=== PATIENT | female | born 1980 | race Hispanic/Latino ===

== ENCOUNTER 2021-09-30 11:08 | Outpatient (CLI) | payer OTHER, SELFPAY ==
--- NOTE | ~2021-09-30 | MM_ITS ---
EXAMINATION: MM screening shayla BI w mu HISTORY: Screening mammogram TECHNIQUE: Craniocaudal and mediolateral oblique 3-D tomosynthesis images were obtained and synthetic 2-D images were generated. CAD analysis was submitted and interpreted. COMPARISON: No prior mammogram is available for comparison at this institution. BREAST PARENCHYMAL COMPOSITION: The breasts are extremely dense, which lowers the sensitivity of mamm ography. FINDINGS: There is no evidence of suspicious mass, calcification, or architectural distortion to sugg est malignancy in either breast. There has been no suspicious interval change. IMPRESSION: 1. No mammographic evidence of malignancy. 2. Recommend routine screening mammography in one year. BI-RADS Category 1: Negative Reviewed, dictated and finalized at location A.
== END 2021-09-30 11:09 | disposition home or self-care (01) ==
LOC: ANHIMG 11:13
PROVIDERS: PCP Registered Nurse; Visit Provider Registered Nurse
DX: Z12.31 Encounter for screening mammogram for malignant neoplasm of breast (principal)
CPT/HCPCS: 77063; 77067

== ENCOUNTER 2022-12-24 16:36 | Emergency (ER) | payer OTHER, SELFPAY ==
[2022-12-24 16:51] VITALS: BP 115/74; PULSE 62; RESP 16; TEMP 36.8; O2SAT 100
--- NOTE | 2022-12-24 17:41 | ED.LOWEXIN ---
HPI - Extremity Injury (Lower) General Chief Complaint: Extremity Injury, Lower Stated Complaint: left foot issue Time Seen by Provider: 12/24/22 17:31 Source: patient and RN notes reviewed Mode of arrival: ambulatory Limitations: no limitations History of Present Illness HPI Narrative: Patient presents today complaining of a left 2nd toe injury. Four days ago, she was stepping up on a stair when her left 2nd toe peeled back and was fully avulsed. She was seen by a doctor while on vacation in [place] at that time and was given prescription for 4 days of dicloxacillin and p.r.n. naproxen which she has been taking as prescribed. She presents today requesting a work note because when she works she has to be on her feet all the time in closed toed shoes and it is very painful. Patient is diabetic. Related Data Home Medications Medication Instructions Recorded Confirmed Abx From [place] 12/24/22 Iud 12/24/22 atorvastatin 40 mg tablet mg 12/24/22 metformin 500 mg tablet mg 12/24/22 Allergies Allergy/AdvReac Type Severity Reaction Status Date / Time No Known Allergies Allergy Unverified 12/24/22 17:04 Review of Systems Review of Systems: CONSTITUTIONAL: Denies body aches, fever, chills, or sweats. EYES: Denies visual changes, redness, or discharge. ENT: Denies rhinorrhea, congestion, sore throat, or otalgia. CARDIOVASCULAR: Denies chest pain, palpitations, or edema. RESPIRATORY: Denies cough or dyspnea. GASTROINTESTINAL: Denies abdominal pain, nausea, vomiting, or diarrhea. GENITOURINARY: Denies dysuria or hematuria. SKIN: Denies rash, itching, or wounds. MUSCULOSKELETAL: + toe pain NEUROLOGIC: Denies headache, numbness, tingling, or weakness. PSYCH: Denies depression or anxiety. [facility] Past Medical History Medical History (Updated 12/24/22 @ 17:45 by Kadie Gutierrez, HEAT TREAT TECHNICIAN, ) Diabetes Comments At time of signature, I have reviewed and agree with nursing past medical, surgical, social and family history unless otherwise noted. Please see nursing chart for further information. There is no relevant family history pertinent to the presenting complaint Exam Narrative: GENERAL: Well-appearing, well-nourished, and in no acute distress. HEAD: Normocephalic, atraumatic. EYES: EOMI. No redness or drainage. Conjunctivae normal. ENT: Mucous membranes pink and moist. NECK: Normal AROM. CHEST: No respiratory distress. EXTREMITIES: Left 2nd toe: Toenail is absent. No active drainage or surrounding erythema to suggest infection. No edema noted. Distal sensation intact. Capillary refill normal. Full range of motion SKIN: Warm, dry, no rash. Capillary refill normal. Normal skin turgor. NEURO: No focal deficits. Alert and oriented x3. Gait steady. PSYCH: Normal affect. No signs of depression or anxiety. Course Course Level of Care: Express Care Visit Vital Signs Vital signs: Vital Signs Temperature 98.2 F 12/24/22 16:51 Pulse Rate 62 12/24/22 16:51 Respiratory Rate 16 12/24/22 16:51 Blood Pressure 115/74 12/24/22 16:51 Pulse Oximetry 100 12/24/22 16:51 Oxygen Delivery Room Air 12/24/22 16:51 Temperature 98.2 F 12/24/22 16:51 Pulse Rate 62 12/24/22 16:51 Respiratory Rate 16 12/24/22 16:51 Blood Pressure 115/74 12/24/22 16:51 Pulse Oximetry 100 12/24/22 16:51 Oxygen Delivery Room Air 12/24/22 16:51 Reviewed MDM - Extremity Injury (Lower) MDM Narrative Medical decision making narrative: Area does not seem infected. Patient has finished her antibiotics. Band-Aid applied. Will write patient a work note for a couple of days while the nail bed continues to heal. Differential Diagnosis Differential diagnosis: Likely other (Cellulitis, infected nail bed) Critical Care Time Critical Care Time Critical Care Time: No Discharge Plan Discharge Clinical Impression: Avulsion of toenail of left foot Patient Disposition: Home, Self-Care
== END 2022-12-24 17:47 | disposition home or self-care (01) ==
PROVIDERS: Emergency Provider Nurse Practitioner; PCP Registered Nurse
DX: S91.205D Unspecified open wound of left lesser toe(s) with damage to nail, subsequent encounter (principal); W22.8XXD Striking against or struck by other objects, subsequent encounter; E11.9 Type 2 diabetes mellitus without complications; E78.00 Pure hypercholesterolemia, unspecified
CPT/HCPCS: 99212; G0463

== ENCOUNTER 2023-04-27 08:59 | Outpatient (CLI) | payer OTHER, SELFPAY ==
--- NOTE | ~2023-04-27 | MM_ITS ---
EXAMINATION: MM screening shayla BI w mu HISTORY: Screening mammogram TECHNIQUE: Craniocaudal and mediolateral oblique 3-D tomosynthesis images were obtained and synthetic 2-D images were generated. CAD analysis was submitted and interpreted. COMPARISON: September 30, 2021 bilateral screening mammogram BREAST PARENCHYMAL COMPOSITION: The breasts are extremely dense, which lowers the sensitivity of mamm ography. FINDINGS: Occasional bilateral benign calcifications. There is no evidence of suspicious mass, calcif ication, or architectural distortion to suggest malignancy in either breast. There has been no suspic ious interval change. IMPRESSION: 1. No mammographic evidence of malignancy. 2. Recommend routine screening mammography in one year. Close correlation with physical examination i s imperative as well as routine monthly breast self-examination particularly in the setting of dense breast parenchyma, which limits the sensitivity of mammography. Supplemental ultrasound may be of audrey efit in this setting. BI-RADS Category 2: Benign finding(s). Reviewed, dictated and finalized at location B. ET PRESS ASSISTANT IMPRESSION: 1. No mammographic evidence of malignancy. 2. Recommend routine screening mammography in one year. Close correlation with physical examination is imperative as well as routine monthly breast self-exami nation particularly in the setting of dense breast parenchyma, which limits the sensitivity of mammography. Supplemental ultrasound may be of benefit in this setting. BI-RADS Category 2: Benign finding(s).
== END 2023-04-27 09:00 | disposition home or self-care (01) ==
PROVIDERS: PCP Registered Nurse; Visit Provider Registered Nurse
DX: Z12.31 Encounter for screening mammogram for malignant neoplasm of breast (principal)
CPT/HCPCS: 77063; 77067

== ENCOUNTER 2023-08-23 12:40 | Outpatient (CLI) | payer OTHER, SELFPAY ==
--- NOTE | ~2023-08-23 | XR_ITS ---
EXAMINATION: XR shoulder RT min 2V INDICATION: Right shoulder pain TECHNIQUE: Four views of the right shoulder are submitted. COMPARISON: 07/26/2017 FINDINGS: Normal alignment. No fracture. 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 Soft tissues are unremarkable. IMPRESSION: 1. No acute osseous abnormality. Reviewed, dictated and finalized at location B. GIOUS EDUCATION COORDINATOR
== END 2023-08-23 12:41 | disposition home or self-care (01) ==
LOC: ANHIMG 12:42
PROVIDERS: PCP Registered Nurse; Visit Provider Registered Nurse
DX: M25.511 Pain in right shoulder (principal)
CPT/HCPCS: 73030

== ENCOUNTER 2024-02-14 12:26 | Emergency (ER) | payer OTHER, SELFPAY ==
--- NOTE | ~2024-02-14 | CT_ITS ---
EXAMINATION: CT cervical spine wo con DATE: 02/14/2024 13:24 INDICATION: Neck pain TECHNIQUE: Computed tomography (CT) of the cervical spine was performed without intravenous contrast. Automated exposure control and iterative reconstruction technique were employed. The dose-length pro duct was 279.73 mGy-cm. COMPARISON: None FINDINGS: Straightening of the normal cervical lordosis. Vertebral body heights are normal. No fracture. Mild d isc height loss at C5-C6. Remaining disc heights are normal. Disc bulge at C2-C3 through C6-C7 most p rominent at C5-C6 resulting in multilevel minimal to mild central canal stenosis. Severe facet osteoa rthritis with mild associated neural foraminal stenosis on the left at C2-C3 and on the right at C3-C 4. Moderate bilateral facet osteoarthritis at C7-T1. Mild facet osteoarthritis the remaining cervical levels. There is also minimal to mild multilevel cervical uncovertebral osteoarthritis. Minimal neur al foraminal stenosis a few additional cervical levels. Cervical soft tissues are unremarkable. Mild right and minimal left apical pleural-parenchymal scarring. IMPRESSION: 1. Mild cervical spondylosis. Reviewed, dictated and finalized at location A.
--- NOTE | ~2024-02-14 | XR_ITS ---
XR shoulder RT min 2V 02/14/2024 13:28 Indication: Right shoulder pain Procedure: 4 views right shoulder Comparison: 08/23/2023 Findings: No fracture or traumatic malalignment. There is mild degenerative change of the acromioclav icular joint. No soft tissue abnormality. No foreign bodies. Impression: 1: No acute bone or joint abnormality. Reviewed, dictated and finalized at location B. Impression: 1: No acute bone or joint abnormality.
[2024-02-14 12:27] VITALS: BP 136/89; PULSE 72; RESP 16; TEMP 36.6; O2SAT 99
--- NOTE | 2024-02-14 13:04 | ED.EXTPRO ---
HPI - Extremity Problem General Chief complaint: Extremity Problem,Nontraumatic Stated complaint: Right shoulder and neck pain Time Seen by Provider: 02/14/24 12:46 History of Present Illness HPI Narrative: 43-year-old female presents to the emergency department with her daughter at bedside for right neck and shoulder pain for several months. 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 She has a follow-up with him in April. She presents today because she states the diclofenac is not helping and her pain is persistent and worse through the night. She denies injury trauma, fever. She is reporting intermittent weakness and numbness to the right extremity. She denies clumsiness of her right hand, weakness or numbness to the remainder of her extremities, saddle anesthesia, bowel or bladder incontinence. States she has not had x-rays of this shoulder since August of 2023. She has not had any imaging of her neck. Related Data Home Medications Medication Instructions Recorded Confirmed Abx From [place] 12/24/22 Iud 12/24/22 atorvastatin 40 mg tablet mg 12/24/22 metformin 500 mg tablet mg 12/24/22 Allergies Allergy/AdvReac Type Severity Reaction Status Date / Time No Known Allergies Allergy Unverified 02/14/24 13:02 Review of Systems Review of Systems: All systems reviewed & are unremarkable except as noted in HPI and below PMFSH Past Medical History Medical History Diabetes Exam Narrative: GENERAL: Well-appearing, well-nourished, and in no acute distress. HEAD: Normocephalic, atraumatic. EYES: PERRLA and EOMI. ENT: Nares clear, no rhinorrhea or epistaxis. Mucous membranes moist. NECK: No significant midline cervical spinous tenderness, step-offs or deformities. Tenderness to the right cervical paraspinous muscles extending into the trapezius. CHEST: Clear to auscultation. No respiratory distress. HEART: Regular rate and rhythm. No murmur heard. Normal peripheral pulses. EXTREMITIES: RUE: Tenderness along the trapezius, point tenderness to the right acromioclavicular joint on palpation. Mild tenderness to the proximal aspect of the right humerus. No overlying skin changes or deformities. Full active range of motion, pain worse with abduction and anterior flexion. Strength 5/5 throughout. Sensation intact throughout. Radial, median and ulnar nerves are intact. Radial pulse 2 +. Negative empty can sign. Negative lift-off sign. Positive Neer sign. SKIN: Warm, dry, no rash. NEURO: No focal deficits. Alert and oriented x3 Course Vital Signs Vital signs: Vital Signs Temperature 97.9 F 02/14/24 12:27 Pulse Rate 72 02/14/24 12:27 Respiratory Rate 16 02/14/24 12:27 Blood Pressure 136/89 02/14/24 12:27 Pulse Oximetry 99 02/14/24 12:27 Oxygen Delivery Room Air 02/14/24 12:27 Temperature 97.9 F 02/14/24 12:27 Pulse Rate 72 02/14/24 12:27 Respiratory Rate 16 02/14/24 12:27 Blood Pressure 136/89 02/14/24 12:27 Pulse Oximetry 99 02/14/24 12:27 Oxygen Delivery Room Air 02/14/24 12:27 MDM - Extremity (Nontraumatic) MDM Narrative Medical decision making narrative: 43-year-old female presents to the emergency department for right neck pain and shoulder pain for several months. Vitals are stable. Exam is significant for tenderness to the right cervical paraspinous muscles, trapezius, point tenderness to the right AC and proximal humerus. She has full active and passive range of motion. Pain worse with anterior flexion and abduction. Positive Neer test. CT cervical spine shows mild cervical spondylosis. X-ray of the shoulder shows degenerative changes at the AC joint, otherwise no acute findings. negative. Patient updated on workup and exam. Suspect shoulder impingement is source of her symptoms. Sh
[2024-02-14] MEDS: CYCLOBENZAPRINE HCL 10 MG TABLET PO (13:11)
[2024-02-14] MEDS: NAPROXEN 500 MG TABLET PO (13:11)
[2024-02-14] MEDS: ACETAMINOPHEN 500 MG TABLET 1000 MG PO (13:11)
[2024-02-14] MEDS: LIDOCAINE 5% PATCH 1 PATCH TRANSDERM (13:12)
[2024-02-14 13:16] LABS: BEDSIDEPREGUCG Negative
[2024-02-14 15:29] VITALS: BP 133/90; PULSE 61; RESP 15; TEMP 36.1; O2SAT 98
== END 2024-02-14 15:34 | disposition home or self-care (01) ==
PROVIDERS: Emergency Provider Physician Assistant; PCP Registered Nurse
DX: M25.811 Other specified joint disorders, right shoulder (principal); M25.511 Pain in right shoulder; G89.29 Other chronic pain; E11.9 Type 2 diabetes mellitus without complications
CPT/HCPCS: 72125; 73030; 81025; 99284; A4565; A9270

== ENCOUNTER 2024-05-09 09:26 | Outpatient (CLI) | payer OTHER, SELFPAY ==
--- NOTE | ~2024-05-09 | XR_ITS ---
XR heel RT min 2V DATE: 05/09/2024 09:45 INDICATION: Right lateral heel pain for 4 weeks. No injury. TECHNIQUE: Axial and lateral views of right calcaneus COMPARISON: None FINDINGS: No fracture or dislocation or bone destruction. Very slight posterior calcaneal enthesopathy. IMPRESSION: Very slight posterior calcaneal enthesopathy Reviewed, dictated and finalized at location A. OL OF NURSING DIRECTOR
== END 2024-05-09 09:27 | disposition home or self-care (01) ==
PROVIDERS: PCP Registered Nurse; Visit Provider Registered Nurse
DX: M77.31 Calcaneal spur, right foot (principal)
CPT/HCPCS: 73650

== ENCOUNTER 2024-10-13 07:23 | Outpatient (CLI) | payer OTHER, SELFPAY ==
--- NOTE | ~2024-10-13 | MM_ITS ---
EXAMINATION: MM screening shayla BI w mu HISTORY: Screening mammogram TECHNIQUE: Craniocaudal and mediolateral oblique 3-D tomosynthesis images were obtained and synthetic 2-D images were generated. CAD analysis was submitted and interpreted. COMPARISON: 04/27/2023, 09/30/2021 BREAST PARENCHYMAL COMPOSITION:Dense: The breasts are extremely dense, which lowers the sensitivity o f mammography. FINDINGS: No suspicious mass, calcification, or architectural distortion are identified in either haider ast to suggest malignancy. There has been no suspicious interval change. IMPRESSION: No mammographic evidence of malignancy. Recommend routine screening mammography in one year. BI-RADS Category 1: Negative Reviewed, dictated and finalized at location M.
--- OUTSIDE RECORDS SUMMARY | 2024-10-13 07:27 | XMS_ITS ---
past 12 months-neg ative Nephropath y Screening: done Pneumovax 23: UTD Eye Exam: completed in the last 12 months- positive Patient Education: healthy diet: yes no exercise: yes no weight loss: yes no foot care: yes no complicati ons of uncontroll ed diabetes: yes no medication compliance : yes no Next Visit: 3 months(s) Allergic rhinitis 780161 04 J30.9 May use Benadryl prn and nasal spray prn Mixed hyperlipidemia 267 172098 E78.2 04/28/2019 Total cho 153 Trig 190 elevated HDL 40 low LDL 87 normal Patient is unable to take statin 02/11/2020 cho 416.3 trig 170.2 HDL 28.3 LDL 81 Patient re- started on Atorvastat in 40mg once daily per PUBLIC POLICY COORDINATOR T. Mond on 05/18/2020 06/21/2020 cho 108.5 trig 188 HDL 37.6 LDL 22cho 97.6Trig 130HDL 38.3LDL 39 09/19/2022 cho 156trig 358HDL 38.9LDL 61.9 12/31/2022 cho 132trig 301HDL 39LDL 47 continue atorvastat in 40mg dailyvasce pa not coveredAvo id all breads, potatoes, cereal, pasta, rice, margarine, refined sugars, milk yogurt, ice cream, juices, soda (including diet), beer, and man-made or manufactur ed desserts. Enjoy steak, fish, chicken (no skin), pork, butter, vegetables , beans, nuts, whole eggs, cheese (low fat or skim), cream in your coffee. 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 Pain of ri ght shoulder joint [id number] 1877595 M25.511 Refuses PT for right nowShe is exercising at home2023 XRAY Shoulder shows OA of acromiocla vicular joint [id number] Dai Fernandez [facility] [address] [place] [address] 01/01/2024 15:30:13 01/07/2024 20:19:37 Type 2 diabetes mellitus 42009279 E11.9 diabetes mellitus Chronic worse A1c 8.2, Goal < 8.0Statin: yes SHYANNE/ARB: yes Foot Exam: completed in the past 12 months-neg ative Nephropath y Screening: done Pneumovax 23: UTD Eye Exam: completed in the last 12 months- negative Patient Education: healthy diet: yes no exercise: yes no weight loss: yes no foot care: yes no complicati ons of uncontroll ed diabetes: yes no medication compliance : yes no Next Visit: 3 months(s) Hypertriglyceridemia 302 117683 E78.2 12/31/2022 cho 132trig 301HDL 39LDL 47 Mixed hyperlipidemia 267 866806 E78.2 04/28/2019 Total cho 153 Trig 190 elevated HDL 40 low LDL 87 normal Patient is unable to take statin 02/11/2020 cho 416.3 trig 170.2 HDL 28.3 LDL 81 Patient re- started on Atorvastat in 40mg once daily per PUBLIC POLICY COORDINATOR Coco Warner on 05/18/2020 06/21/2020 cho 108.5 trig 188 HDL 37.6 LDL 22cho 97.6Trig 130HDL 38.3LDL 39 09/19/2022 cho 156trig 358HDL 38.9LDL 61.9 12/31/2022 cho 132trig 301HDL 39LDL 47 continue atorvastat in 40mg dailyvasce pa not coveredAvo id all breads, potatoes, cereal, pasta, rice, margarine, refined sugars, milk yogurt, ice cream, juices, soda (including diet), beer, and man-made or manufactur ed desserts. Enjoy steak, fish, chicken (no skin), pork, butter, vegetables , beans, nuts, whole eggs, cheese (low fat or skim), cream in your coffee. 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 [id number] NORRIS MANCIA-[facility] [address] [place] [address] 01/13/2024 10:24:17 01/14/2024 18:38:26 Mixed hyperlipidemia 387373927 E78.2 04/28/2019 Total cho 153 Trig 190 elevated HDL 40 low LDL 87 normal Patient is unable to take statin 02/11/2020 cho 416.3 trig 170.2 HDL 28.3 LDL 81 Patient re- started on Atorvastat in 40mg once daily per PUBLIC POLICY COORDINATOR Coco Warner on 05/18/2020 06/21/2020 cho 108.5 trig 188 HDL 37.6 LDL 22cho 97.6Trig 130HDL 38.3LDL 39 09/19/2022 cho 156trig 358HDL 38.9LDL 61.9 12/31/2022 cho 132trig 301HDL 39LDL 47 continue atorvastat in 40mg dailyvasce pa not coveredAvo id all breads, potatoes, cereal, pasta, rice, margarine, refined sugars, milk yogurt, ice cream, juices, soda (including diet), beer, and man-made or manufactur ed desserts. Enjoy steak, fish, chicken (no skin), pork, butter, vegetables , beans, nuts, whole eggs, cheese (low fat or skim), cream in your coffee. [id number] Dai Fernandez, [employer] [facility] [address] [place] [address] 04/13/2024 15:34:57 04/17/2024 14:57:01 Type 2 diabetes mellitus 41287707 E11.9 diabetes mellitus Chronic worse A1c 8.5, Goal < 8.0Statin: yes SHYANNE/ARB: yes Foot Exam: completed in the past 12 months-neg ative Nephropath y Screening: done Pneumovax 23: UTD Eye Exam: completed in the last 12 months- negative Patient Education: yes healthy diet: no-just returned from vacation exercise: yes weight loss:yes foot care: yes complicati ons of uncontroll ed diabetes: no medication compliance : yes Next Visit: 3 months(s) Hypertriglyceridemia 302 552836 E78.2 12/31/2022 cho 132trig 301HDL 39LDL 47 01/13/2024 cho 163trig 360HDL 34LDL 114 Mixed hyperlipidemia 267 713794 E78.2 04/28/2019 Total cho 153 Trig 190 elevated HDL 40 low LDL 87 normal Patient is unable to take statin 02/11/2020 cho 416.3 trig 170.2 HDL 28.3 LDL 81 Patient re- started on Atorvastat in 40mg once daily per PUBLIC POLICY COORDINATOR T. Mond on 05/18/2020 06/21/2020 cho 108.5 trig 188 HDL 37.6 LDL 22cho 97.6Trig 130HDL 38.3LDL 39 09/19/2022 cho 156trig 358HDL 38.9LDL 61.9 12/31/2022 cho 132trig 301HDL 39LDL 47 01/13/2024 cho 163trig 360HDL 34LDL 114 continue atorvastat in 40mg dailyvasce pa not coveredAvo id all breads, potatoes, cereal, pasta, rice, margarine, refined sugars, milk yogurt, ice cream, juices, soda (including diet), beer, and man-made or manufactur ed desserts. Enjoy steak, fish, chicken (no skin), pork, butter, vegetables , beans, nuts, whole eggs, cheese (low fat or skim), cream in your coffee. Allergic rhinitis 542621 04 J30.9 May use Benadryl prn and nasal spray prn Overweight 690624781 E66 .3 BMI 26.4Ht 5' 6.5 Healthy weight range 120-169 Migraine 45886608 G43.90 9 Pain of ri ght shoulder joint 5831639848 3350446 M25.511 Refuses PT for right nowShe is exercising at home2023 XRAY Shoulder shows OA of acromiocla vicular jointHas appointmen t with ortho 04/23/2024 may need MRI/steroi d injection Osteoarthritis 583667344 M19.90 Reminded of BB warning with Ibuprofens witch from tylenol arthritis to occasional ibuprofen Asteatosis cutis 8973609 0 L85.3 Tobacco user 849530160 Z 72.0 5 cigs per week for 7 yearscouns eled to quit Verruca vulgaris 3238830 3 B07.8 Administra tion of influenza vaccine 18865981 Z23 Pain in right heel 97472 32330 637764 M79.579 [id number] Dai Fernandez [facility] [address], [place] [address] 07/17/2024 16:08:46 07/20/2024 15:50:24 Body mass index 25-29 - overweight 346781227 Z68.25 BMI 26.1Ht 5' 6.5 Healthy weight range 120-155 Type 2 lorraine betes mellitus 39778404 E11.9 diabetes mellitus Chronic worse-has been eating at later times-forg ets to take night dosage-not following dietPatien t wants to wait on addition of another medication -will try LSM A1c 8.6, Goal < 8.0Statin: yes SHYANNE/ARB: yes Foot Exam: completed in the past 12 months-neg ative Nephropath y Screening: done Pneumovax 23: UTD Eye Exam: completed in the last 12 months- negative Patient Education: yes healthy diet: no-just returned from vacation exercise: yes weight loss:yes foot care: yes complicati ons of uncontroll ed diabetes: no medication compliance : yes Next Visit: 3 months(s) Mixed hyperlipidemia 267 929083 E78.2 04/28/2019 Total cho 153 Trig 190 elevated HDL 40 low LDL 87 normal Patient is unable to take statin 02/11/2020 cho 416.3 trig 170.2 HDL 28.3 LDL 81 Patient re- started on Atorvastat in 40mg once daily per PUBLIC POLICY COORDINATOR TNellie Hawkinsd on 05/18/2020 06/21/2020 cho 108.5 trig 188 HDL 37.6 LDL 22cho 97.6Trig 130HDL 38.3LDL 39 09/19/2022 cho 156trig 358HDL 38.9LDL 61.9 12/31/2022 cho 132trig 301HDL 39LDL 47 01/13/2024 cho 163trig 360HDL 34LDL 114 continue atorvastat in 40mg dailyvasce pa not coveredAvo id all breads, potatoes, cereal, pasta, rice, margarine, refined sugars, milk yogurt, ice cream, juices, soda (including diet), beer, and man-made or manufactur ed desserts. Enjoy steak, fish, chicken (no skin), pork, butter, vegetables , beans, nuts, whole eggs, cheese (low fat or skim), cream in your coffee. Hypertriglyceridemia 302 821948 E78.2 12/31/2022 cho 132trig 301HDL 39LDL 47 01/13/2024 cho 163trig 360HDL 34LDL 114 Allergic rhinitis 604356 04 J30.9 May use Benadryl prn and nasal spray prn Overweight 259261617 E66 .3 BMI 26.1Ht 5' 6.5 Healthy weight range 120-169 Migraine 56771829 G43.90 9 Pain of ri ght shoulder joint 8255298423 0086541 M25.511 Refuses PT for right nowShe is exercising at home2023 XRAY Shoulder shows OA of acromiocla vicular jointHad appointmen t with ortho 04/23/2024 may need MRI/steroi d injectionw as told to do rehab exercises- she is to follow up Osteoarthritis 622729602 M19.90 Reminded of BB warning with Ibuprofens witch from tylenol arthritis to occasional ibuprofen Asteatosis cutis 1075216 0 L85.3 Tobacco user 060428657 Z 72.0 5 cigs per week for 7 yearscouns eled to quit Verruca vulgaris 2323800 3 B07.8 fell off but has returnedsh e will use meds given at last visit Pain in right heel 56728 09356 550962 M79.671 05/09/2024 Heel xray shows calcaneal enthesopat hy may use orthotics, NSAIDS Depression screening 171 777773 Z13.31 PHQ2-9 negative Health Concerns Section Related Observation LastModified by Organization Detai ls LastModified Time None Recorded Concern Status LastModified by Organization Details LastModified Time None Recorded Advance Directives Directive N: Payers Encounter Date Sequence Insurance Name Policy Number Policy Tubbs Covered Member ID Tubbs Member ID Guarantor Name 10/15/2023 1 [facility] ON OR AFTER 12/15/20 (MEDICAID REPLACEMENT - HMO) Jennifer Sosa [id number] Jennifer Sosa 01/01/2024 1 [facility] ON OR AFTER 12/15/20 (MEDICAID REPLACEMENT - HMO) Jennifer Sosa [id number] Jennifer Sosa 01/13/2024 1 [facility] ON OR AFTER 12/15/20 (MEDICAID REPLACEMENT - HMO) Jennifer oSsa [id number] Jennifer Sosa 04/13/2024 1 [facility] ON OR AFTER 12/15/20 (MEDICAID REPLACEMENT - HMO) Jennifer Sosa [id number] Jennifer Sosa 07/17/2024 1 [facility] ON OR AFTER 12/15/20 (MEDICAID REPLACEMENT - HMO) Jennifer Sosa [id number] Jennifer Sosa Notes Date Note Type Note Provider Name and Address Organization Details Recorded Time 10/15/2023 text/html Back PainReporte d bypatient.Location:pain is not radiating Severity:worsening;pain level 5/10 Duration:intermittent Onset/Timing:recurrent episode Alleviating Factors:rest; relieved by changing position; massage Aggravating Factors:movement/positi oning;twisting;flexing back;extending back Associated Symptoms:no fever; no weak limbs; no numbness of the legs/feet; no tingling; no incontinence; no shortness of breathDiabetes F/UReported bypatient.Review finger sticks:fastin; post breakfast: 160; post dinner: 120s Labs:last A1C result: 8.0 Context:normal range of home blood sugars (in the low 100s); checking feet regularly; taking aspirin daily; no side effects from medications;not seeing eye doctor yearly;missing doses of medication; forgets evening dose Associated Symptoms:no weight gain; no weight loss; no dizziness; no sweats; no headaches; no confusion; no increased thirst; no increased appetite; no increased urination; no blurred vision; no numbness of feet; no calluses on feetHyperlipidemiaRepor sarmad bypatient.Type of hyperlipidemia:combined ;hypercholesterolemia;h ypertriglyceridemia Duration:chronic Control:not at goal; Pt had been and which she reports she is no longer Compliance:compliant; compliant with diet;does not exercise Complications:no coronary artery disease; no peripheral artery disease;cardiovascular disease Risk Factors:diabetes;hypert ension;obesity;high lipoprotein(a) level 42y/o HF presents for DM2 refills. She feels fine denies any polys. She forgets to take her evening metformin dose. Since HA1c has been a little elevated will try harder at taking meds/diet. If no improvement will be adding another agent to control BS.She saw manager sterile processing. She had surgery for 1 of her bunions. She is doing well.She c/o R shoulder pain radiating up to neck. She is right handed and is aware she uses R arm frequently while at work. She denies any cramping. She had shoulder xray which shows OA. She doesnt want to go to PT right now. She agrees to consult with ortho for other options.She c/o continued itchiness on L shoulder blade area for years. No obvious rash just dry skin. Lac-hydrin helping. OSMIN Hawk Attn: Accounting,[address] [place], [address], [facility] 10/15/2023 18:04:22 01/01/2024 text/html 43y/o HF present s for DM2 refills. She feels fine denies any polys. She forgets to take her evening metformin dose. Since HA1c has been a little elevated will try harder at taking meds/diet. If no improvement will be adding another agent to control BS.She saw manager sterile processing. She had surgery for 1 of her bunions. She is doing well.She c/o R shoulder pain radiating up to neck. She is right handed and is aware she uses R arm frequently while at work. She denies any cramping. She had shoulder xray which shows OA. She doesnt want to go to PT right now. She agrees to consult with ortho for other options. Has appointment in a couple of months.She c/o continued itchiness on L shoulder blade area for years. No obvious rash just dry skin. Lac-hydrin helping. OSMIN Hawk Attn: Accounting[address] [place], [address], [facility] 01/03/2024 15:33:40 01/01/2024 text/html Back PainReporte d bypatient.Location:pain is not radiating Severity:worsening;pain level 5/10 Duration:intermittent Onset/Timing:recurrent episode Alleviating Factors:rest; relieved by changing position; massage Aggravating Factors:movement/positi oning;twisting;flexing back;extending back Associated Symptoms:no fever; no weak limbs; no numbness of the legs/feet; no tingling; no incontinence; no shortness of breathDiabetes F/UReported bypatient.Review finger sticks:fastin; post breakfast: 160; post dinner: 120s Labs:last A1C result: 8.0 Context:normal range of home blood sugars (in the low 100s); checking feet regularly; taking aspirin daily; no side effects from medications;not seeing eye doctor yearly;missing doses of medication; forgets evening dose Associated Symptoms:no weight gain; no weight loss; no dizziness; no sweats; no headaches; no confusion; no increased thirst; no increased appetite; no increased urination; no blurred vision; no numbness of feet; no calluses on feetHyperlipidemiaRepor sarmad bypatient.Type of hyperlipidemia:combined ;hypercholesterolemia;h ypertriglyceridemia Duration:chronic Control:not at goal; Pt had been and which she reports she is no longer Compliance:compliant; compliant with diet;does not exercise Complications:no coronary artery disease; no peripheral artery disease;cardiovascular disease Risk Factors:diabetes;hypert ension;obesity;high lipoprotein(a) level OSMIN Hawk Attn: Accounting,[address] [place], [address], [facility] 01/03/2024 15:33:40 04/13/2024 text/html Back PainReporte d bypatient.Location:pain is not radiating Severity:worsening;pain level 5/10 Duration:intermittent Onset/Timing:recurrent episode Alleviating Factors:rest; relieved by changing position; massage Aggravating Factors:movement/positi oning;twisting;flexing back;extending back Associated Symptoms:no fever; no weak limbs; no numbness of the legs/feet; no tingling; no incontinence; no shortness of breathDiabetes F/UReported bypatient.Review finger sticks:fastin; post breakfast: 160; post dinner: 120s Labs:last A1C result: 8.5 Context:normal range of home blood sugars (in the low 100s); checking feet regularly; taking aspirin daily; no side effects from medications;not seeing eye doctor yearly;missing doses of medication; forgets evening dose Associated Symptoms:no weight gain; no weight loss; no dizziness; no sweats; no headaches; no confusion; no increased thirst; no increased appetite; no increased urination; no blurred vision; no numbness of feet; no calluses on feetHyperlipidemiaRepor sarmad bypatient.Type of hyperlipidemia:combined ;hypercholesterolemia;h ypertriglyceridemia Duration:chronic Control:not at goal; Pt had been and which she reports she is no longer Compliance:compliant; compliant with diet;does not exercise Complications:no coronary artery disease; no peripheral artery disease;cardiovascular disease Risk Factors:diabetes;hypert ension;obesity;high lipoprotein(a) level 43y/o HF presents for DM2 refills. She feels fine denies any polys. She forgets to take her evening metformin dose. Since HA1c has been a little elevated will try harder at taking meds/diet. If no improvement will be adding another agent to control BS.She saw manager sterile processing. She had surgery for 1 of her bunions. She is doing well.She c/o R shoulder pain radiating up to neck. She is right handed and is aware she uses R arm frequently while at work. She denies any cramping. She had shoulder xray which shows OA. She doesnt want to go to PT right now. She agrees to consult with ortho for other options. Has appointment in a couple of months. She had severe pain of shoulder so she presented to ER on 02/14/[address] of neck and shoulder.She c/o continued itchiness on L shoulder blade area for years. No obvious rash just dry skin. Lac-hydrin helping.c/o R heel pain for about two months changes her tennis shoes using inserts still has pain.She wants influenza vaccine. Has no contraindications.She just returned from vacation. Dai Fernandez, [employer] Attn: Accounting,[address] [facility], [place], [address], [place] [facility] 04/16/2024 16:21:10 07/17/2024 text/html Back PainReporte d bypatient.Location:pain is not radiating Severity:worsening;pain level 5/10 Duration:intermittent Onset/Timing:recurrent episode Alleviating Factors:rest; relieved by changing position; massage Aggravating Factors:movement/positi oning;twisting;flexing back;extending back Associated Symptoms:no fever; no weak limbs; no numbness of the legs/feet; no tingling; no incontinence; no shortness of breathDiabetes F/UReported bypatient.Review finger sticks:fastin; post breakfast: 160; post dinner: 120s Labs:last A1C result: 8.5 Context:normal range of home blood sugars (in the low 100s); checking feet regularly; taking aspirin daily; no side effects from medications;not seeing eye doctor yearly;missing doses of medication; forgets evening dose Associated Symptoms:no weight gain; no weight loss; no dizziness; no sweats; no headaches; no confusion; no increased thirst; no increased appetite; no increased urination; no blurred vision; no numbness of feet; no calluses on feetHyperlipidemiaRepor sarmad bypatient.Type of hyperlipidemia:combined ;hypercholesterolemia;h ypertriglyceridemia Duration:chronic Control:not at goal; Pt had been and which she reports she is no longer Compliance:compliant; compliant with diet;does not exercise Complications:no coronary artery disease; no peripheral artery disease;cardiovascular disease Risk Factors:diabetes;hypert ension;obesity;high lipoprotein(a) level 43y/o HF presents for DM2 refills. She feels fine denies any polys. She forgets to take her evening metformin dose. Since HA1c has been a little elevated will try harder at taking meds/diet. If no improvement will be adding another agent to control BS.She saw manager sterile processing. She had surgery for 1 of her bunions. She is doing well.She c/o R shoulder pain radiating up to neck. She is right handed and is aware she uses R arm frequently while at work. She denies any cramping. She had shoulder xray which shows OA. She doesnt want to go to PT right now. She agrees to consult with ortho for other options. Has appointment in a couple of months. She had severe pain of shoulder so she presented to ER on last year and had CT of neck and shoulder. Reports PUBLIC POLICY COORDINATOR at [facility] ortho recommends extensive rehab rahter than steroid shots for now.She c/o continued itchiness on L shoulder blade area for years. No obvious rash just dry skin. Lac-hydrin helping.c/o R heel pain for about two months changes her tennis shoes using inserts still has pain. Xray shows heel enthesopathy. She will continue conservative treatment.She just returned from vacation. OSMIN Hawk Attn: Accounting,[address] [place], [address], [facility] 07/17/2024 17:34:55 OBGyn Episode Ob Episode Information Episode Created Date Number of Fetuses Patient Bloodtype Patient rh Status Prepregnancy Weight lbs Domestic Partner Domestic Partner Phone Father Name Sexologist Status 08/26/19 19 1 CLOSED Fetus Data First Name Last Name Admitted to NICU Weight (g) Sex Living Outcome Pediatric Complications Fetus ID Race Codes Race Delivery Type , Spontane ous [id number] Taurus Calculation Initial Taurus Date Initial Exam Date Initial Exam Provider Initial Ultrasound Date Last Menstrual Period Date Ultra Sound Weeks Gestation 0 Eighteen To Twenty Week Taurus Update Ultra Sound Date Fundal Height At Umbil Quickening Date Ultra Sound Latest Weeks Gestation Final Taurus Confirmed By Final Taurus Confirmed Date Final Taurus Date Ultra Sound Latest Days Gestation 0 0 Menstrual History Last Menstrual Date Menses Monthly On Bcp Conception Prior Menses Frequency Hcg Plus Date Menarche Onset Age Delivery Information Delivery Date Delivery Type Labor Anesthesia Weeks Gestation Incision Type Labor Labor Length Hrs Delivered By Post Complications Tubal Sterilization Discharge Date Comments 8 seen in [facility] ER Discharge Information Feeding Method Contraceptive Method Maternal HG B and HCT Levels Ob Episode Information Episode Created Date Number of Fetuses Patient Bloodtype Patient rh Status Prepregnancy Weight lbs Domestic Partner Domestic Partner Phone Father Name Sexologist Status 08/26/19 19 1 CLOSED Fetus Data First Name Last Name Admitted to NICU Weight (g) Sex Living Outcome Pediatric Complications Fetus ID Race Codes Race Delivery Type , Spontane ous [id number] Taurus Calculation Initial Taurus Date Initial Exam Date Initial Exam Provider Initial Ultrasound Date Last Menstrual Period Date Ultra Sound Weeks Gestation 0 Eighteen To Twenty Week Taurus Update Ultra Sound Date Fundal Height At Umbil Quickening Date Ultra Sound Latest Weeks Gestation Final Taurus Confirmed By Final Taurus Confirmed Date Final Taurus Date Ultra Sound Latest Days Gestation 0 0 Menstrual History Last Menstrual Date Menses Monthly On Bcp Conception Prior Menses Frequency Hcg Plus Date Menarche Onset Age Delivery Information Delivery Date Delivery Type Labor Anesthesia Weeks Gestation Incision Type Labor Labor Length Hrs Delivered By Post Complications Tubal Sterilization Discharge Date Comments 9 5 seen in [facility] ER Discharge Information Feeding Method Contraceptive Method Maternal HG B and HCT Levels Ob Episode Information Episode Created Date Number of Fetuses Patient Bloodtype Patient rh Status Prepregnancy Weight lbs Domestic Partner Domestic Partner Phone Father Name Sexologist Status 02/10/20 20 1 CLOSED Fetus Data First Name Last Name Admitted to NICU Weight (g) Sex Living Outcome Pediatric Complications Fetus ID Race Codes Race Delivery Type F [id number] Vaginal Taurus Calculation Initial Taurus Date Initial Exam Date Initial Exam Provider Initial Ultrasound Date Last Menstrual Period Date Ultra Sound Weeks Gestation 0 Eighteen To Twenty Week Taurus Update Ultra Sound Date Fundal Height At Umbil Quickening Date Ultra Sound Latest Weeks Gestation Final Taurus Confirmed By Final Taurus Confirmed Date Final Taurus Date Ultra Sound Latest Days Gestation 0 0 Menstrual History Last Menstrual Date Menses Monthly On Bcp Conception Prior Menses Frequency Hcg Plus Date Menarche Onset Age Delivery Information Delivery Date Delivery Type Labor Anesthesia Weeks Gestation Incision Type Labor Labor Length Hrs Delivered By Post Complications Tubal Sterilization Discharge Date Comments 0 Discharge Information Feeding Method Contraceptive Method Maternal HG B and HCT Levels Ob Episode Information Episode Created Date Number of Fetuses Patient Bloodtype Patient rh Status Prepregnancy Weight lbs Domestic Partner Domestic Partner Phone Father Name Sexologist Status 09/04/19 15 1 CLOSED Fetus Data First Name Last Name Admitted to NICU Weight (g) Sex Living Outcome Pediatric Complications Fetus ID Race Codes Race Delivery Type 4309.12 4 M Full Term [id number] Vaginal Taurus Calculation Initial Taurus Date Initial Exam Date Initial Exam Provider Initial Ultrasound Date Last Menstrual Period Date Ultra Sound Weeks Gestation 0 Eighteen To Twenty Week Taurus Update Ultra Sound Date Fundal Height At Umbil Quickening Date Ultra Sound Latest Weeks Gestation Final Taurus Confirmed By Final Taurus Confirmed Date Final Taurus Date Ultra Sound Latest Days Gestation 0 0 Menstrual History Last Menstrual Date Menses Monthly On Bcp Conception Prior Menses Frequency Hcg Plus Date Menarche Onset Age Delivery Information Delivery Date Delivery Type Labor Anesthesia Weeks Gestation Incision Type Labor Labor Length Hrs Delivered By Post Complications Tubal Sterilization Discharge Date Comments 3 40 Discharge Information Feeding Method Contraceptive Method Maternal HG B and HCT Levels Ob Episode Information Episode Created Date Number of Fetuses Patient Bloodtype Patient rh Status Prepregnancy Weight lbs Domestic Partner Domestic Partner Phone Father Name Sexologist Status 09/04/19 15 1 CLOSED Fetus Data First Name Last Name Admitted to NICU Weight (g) Sex Living Outcome Pediatric Complications Fetus ID Race Codes Race Delivery Type 3088.96 152 F Full Term [id number] Vaginal Taurus Calculation Initial Taurus Date Initial Exam Date Initial Exam Provider Initial Ultrasound Date Last Menstrual Period Date Ultra Sound Weeks Gestation 0 Eighteen To Twenty Week Taurus Update Ultra Sound Date Fundal Height At Umbil Quickening Date Ultra Sound Latest Weeks Gestation Final Taurus Confirmed By Final Taurus Confirmed Date Final Taurus Date Ultra Sound Latest Days Gestation 0 0 Menstrual History Last Menstrual Date Menses Monthly On Bcp Conception Prior Menses Frequency Hcg Plus Date Menarche Onset Age Delivery Information Delivery Date Delivery Type Labor Anesthesia Weeks Gestation Incision Type Labor Labor Length Hrs Delivered By Post Complications Tubal Sterilization Discharge Date Comments 6 38 [place] Discharge Information Feeding Method Contraceptive Method Maternal HG B and HCT Levels Data Portability Created on: October 13, 2024 Jennifer Sosa .[id number] : 1980 Sex: Female Author Organization [facility] Address [address] [place] [address] Care Team Providers Care Licensed Land Surveyor Name Role Phone DAI FERNANDEZ Primary Care Provider LILLI CAMPOS Button Broacher Assessment No assessment recorded. Plan of Treatment Reminders Order Date Submit Date Provider Last Modified By Organization Details Last Modified Time Details Appointments ANY 15 2024 10:00A M EDVIN EDWARDS PA-C Not available Not available Not available Lab HbA1c (hemoglob in A1c), blood 2024 025 [email or web address] In-Office Order, Internal Use Only DO Not Attach Compendium DO Not Attach Compendium, Do Not Delete/merge, [id number] 07/17/2024 17:11:06 glucose, fingersti ck, blood 2024 025 yarauz In-Office Order, Internal Use Only DO Not Attach Compendium DO Not Attach Compendium, Do Not Delete/merge, [id number] 07/17/2024 17:11:05 HbA1c (hemoglob in A1c), blood 2023 024 yarauz In-Office Order, Internal Use Only DO Not Attach Compendium DO Not Attach Compendium, Do Not Delete/merge, [id number] 04/13/2024 17:26:51 glucose, fingersti ck, blood 2023 024 yarauz In-Office Order, Internal Use Only DO Not Attach Compendium DO Not Attach Compendium, Do Not Delete/merge, [id number] 04/13/2024 17:26:52 lipid panel, serum 2023 024 [facility], [address] [facility], [address], [place], [address], 01/14/2024 11:17:08 CMP, serum or plasma 2023 024 [facility], [address] [facility] [address], [address], [place], [address], 01/14/2024 11:17:08 TSH, ultra-sen sitive, serum 2023 024 [facility], [address], [address], [place], [address], 01/14/2024 10:15:00 urinalysi s, complete 2023 024 [facility], [address] [facility] [address], [place], [address], 01/14/2024 11:17:10 CBC 2023 024 [facility], [address] [facility], [address], [place], [address], 01/14/2024 17:10:08 albumin/c reatinine , mass ratio, urine 2023 024 [facility], [address] [facility] [address], [address], [place], [address], 01/14/2024 10:14:59 lipid panel, serum 2023 024 [email or web address] [facility], [address] [facility] [address], [address], [place], [address], 01/22/2024 13:27:00 CMP, serum or plasma 2023 024 lfullerrn [facility], [address] [facility] [address], [place], [address], 01/22/2024 13:27:00 TSH, ultra-sen sitive, serum 2023 024 lfullerrn [facility], [address] [facility] [address], [address], [place], [address], 01/22/2024 13:27:00 urinalysi s, complete 2023 024 [email or web address] [facility], [address] [facility], [address], [place], [address], 01/22/2024 13:27:00 CBC 2023 024 [email or web address] [facility], [address] [facility], [address], [place], [address], 01/22/2024 13:27:00 HbA1c (hemoglob in A1c), blood 2023 024 yarauz In-Office Order, Internal Use Only DO Not Attach Compendium DO Not Attach Compendium, Do Not Delete/merge, [id number] 01/01/2024 16:23:51 glucose, fingersti ck, blood 2023 024 yarauz In-Office Order, Internal Use Only DO Not Attach Compendium DO Not Attach Compendium, Do Not Delete/merge, [id number] 01/01/2024 16:23:52 albumin/c reatinine , mass ratio, urine 2023 024 [facility], [address] [facility], [address], [place], [address], 01/22/2024 13:27:00 HbA1c (hemoglob in A1c), blood 2023 024 yarauz In-Office Order, Internal Use Only DO Not Attach Compendium DO Not Attach Compendium, Do Not Delete/merge, [id number] 10/15/2023 17:05:45 glucose, fingersti ck, blood 2023 024 yarauz In-Office Order, Internal Use Only DO Not Attach Compendium DO Not Attach Compendium, Do Not Delete/merge, [id number] 10/15/2023 17:05:46 Referral orthopedi c sports medicine referral 2023 024 [facility], [address] [place] [address], [address] [place] [address], [address], 04/14/2024 10:10:08 Procedures None recorded. Surgeries None recorded. Imaging XR, calcaneus , 2 or more view 2023 024 [facility], [address] [place] [address] [address], [place], [address], 05/09/2024 16:15:49 Medication Orders fluticaso ne propionat e 50 mcg/actua tion nasal spray,terrance pension 2024 025 [facility], [address] [place] [address], [id number], 07/17/2024 17:11:18 fenofibra te 160 mg tablet 2024 025 [facility], [address] [place] [address], [id number], 07/17/2024 17:31:36 aspirin 81 mg tablet,de layed release 2024 025 [facility], [address] [place] [address], [id number], 07/17/2024 17:11:16 metformin 1,000 mg tablet 2024 025 [facility], [address] [place] [address], [id number], 07/17/2024 17:11:16 ammonium lactate 12 % lotion 2024 025 [facility], [address] [place] [address], [address], 07/17/2024 17:11:19 atorvasta tin 40 mg tablet 2024 025 [facility], [address] [place] [address], [address], 07/17/2024 17:11:17 ibuprofen 600 mg tablet 2024 025 [facility], [address] [place], [address], 07/17/2024 17:11:14 cyclobenz aprine 5 mg tablet 2024 025 [facility], [address] [place], [address], 07/17/2024 17:11:30 fluticaso ne propionat e 50 mcg/actua tion nasal spray,terrance pension 2023 024 [facility], [address] [place] [address], [address], 04/13/2024 17:27:02 fenofibra te 160 mg tablet 2023 024 [facility] [address], [address] [place] [address], [address], 04/16/2024 16:18:12 aspirin 81 mg tablet,de layed release 2023 024 [facility], [address] [place] [address], [address], 04/13/2024 17:26:57 metformin 1,000 mg tablet 2023 024 [facility], [address] [place], [address], 04/13/2024 17:27:01 prednison e 20 mg tablet 2023 025 [facility], [address] [place], [address], 07/17/2024 17:21:37 ammonium lactate 12 % lotion 2023 024 [facility], [address] [place], [address], 04/13/2024 17:27:12 imiquimod 5 % topical cream packet 2023 024 [facility], [address] [place] [address], [address], 04/13/2024 17:27:09 cimetidin e 200 mg tablet 2023 025 [facility], [address] [place] [address], [address], 07/17/2024 16:18:25 atorvasta tin 40 mg tablet 2023 024 [facility], [address] [place] [address], [address], 04/13/2024 17:26:57 ibuprofen 600 mg tablet 2023 024 [facility], [address] [place] [address], [address], 04/13/2024 17:26:58 cyclobenz aprine 5 mg tablet 2023 024 [facility], [address] [place] [address], [id number], 04/13/2024 17:27:40 imiquimod 5 % topical cream packet 2023 024 [facility], [address] [place] [address], [id number], 01/01/2024 16:30:20 cimetidin e 200 mg tablet 2023 024 alejandra [facility], [address] [place] [address], [id number], 07/17/2024 16:18:10 fenofibra te 160 mg tablet 2023 024 [facility], [address] [place] [address], [address], 01/03/2024 15:33:14 fluticaso ne propionat e 50 mcg/actua tion nasal spray,terrance pension 2023 024 [facility], [address] [place] [address], [id number], 01/01/2024 16:24:01 atorvasta tin 40 mg tablet 2023 024 [facility] [address], [address] [place] [address], [address], 01/01/2024 16:24:02 aspirin 81 mg tablet,de layed release 2023 024 [facility], [address] [place] [address], [address], 01/01/2024 16:24:01 metformin 1,000 mg tablet 2023 024 [facility], [address] [place] [address], 106[address], 01/01/2024 16:23:56 ibuprofen 600 mg tablet 2023 024 [facility], [address] [place] [address], [address], 01/01/2024 16:23:56 ammonium lactate 12 % lotion 2023 024 [facility], [address] [place] [address], [id number], 01/01/2024 16:24:01 cyclobenz aprine 5 mg tablet 2023 024 [facility], [address] [place] [address], [address], 04/13/2024 17:21:25 fenofibra te 160 mg tablet 2023 024 [facility], [address] [place] [address], [address], 10/15/2023 17:05:49 fluticaso ne propionat e 50 mcg/actua tion nasal spray,terrance pension 2023 024 [facility] [address], [address] [place] [address], [address], 10/15/2023 17:05:56 atorvasta tin 40 mg tablet 2023 024 [facility] [address], [address] [place] [address], [address], 10/15/2023 17:05:53 metformin 500 mg tablet 2023 024 [facility] [address], [address] [place] [address], [address], 04/13/2024 17:22:46 aspirin 81 mg tablet,de layed release 2023 024 [place] [address], [address] [place] [address], [address], 10/15/2023 17:05:57 ibuprofen 600 mg tablet 2023 024 [facility] [address], [address] [place] [address], [address], 10/15/2023 17:05:51 ammonium lactate 12 % lotion 2023 024 [facility] [address], [address] [place] [address], [address], 10/15/2023 17:05:53 cyclobenz aprine 5 mg tablet 2023 024 [facility] [address], [address] [place] [address], [address], 04/13/2024 17:21:16 Patient TargetsNo targets recorded. Patient Instructions Encounter Date Encounter Id Patient Instructions Last Modified By Organization Details Last Modified Time 10/15/2023 [id number] alergias: instrucciones de cuidado - [allergies: care instructions] yarauz Not available 10/15/2023 17:05:41 C MO manejar las alergias: instrucciones de cuidado - [managing your allergies: care instructions] yarauz Not available 10/15/2023 17:05:41 osteoartritis: instrucciones de cuidado - [osteoarthritis: care instructions] yarauz Not available 10/15/2023 17:05:40 A healthy lifestyle: care instructions yarauz Not available 10/15/2023 17:05:40 aprenda acerca d e la diabetes tipo 2 - [learning about type 2 diabetes] yarauz Not available 10/15/2023 17:05:41 diabetes tipo 2: instrucciones de cuidado - [type 2 diabetes: care instructions] yarauz Not available 10/15/2023 17:05:41 separaci n del hombro: ejercicios de rehabilitaci n - [shoulder separation: rehab exercises] yarauz Not available 10/15/2023 17:05:41 test results Schedule to see manager sterile processing use mole skin in shoes Uncontrolled Diabetes Mellitus complications , blindness, kidney failure, amputations etc. Take your diabetes medication daily check blood sugars fasting and post prandial --keep a log--bring to next appointment stop concentrated sugars--follow 1500 meal plan exercise 50-60 minutes daily on most days check your feet for sores, cuts, etc., see eye doctor once a year see dentist every 6 months ortho referral yarauz Not available 10/15/2023 18:03:28 01/01/2024 [id number] verrugas: instrucciones de cuidado - [warts: care instructions] yarauz Not available 01/01/2024 16:30:12 alergias: instrucciones de cuidado - [allergies: care instructions] yarauz Not available 01/01/2024 16:23:46 C MO manejar las alergias: instrucciones de cuidado - [managing your allergies: care instructions] yarauz Not available 01/01/2024 16:23:46 osteoartritis: instrucciones de cuidado - [osteoarthritis: care instructions] yarauz Not available 01/01/2024 16:23:46 Dejar el tabaco: Instrucciones de cuidado - [Quitting Tobacco: Care Instructions] yarauz Not available 01/01/2024 16:23:46 A healthy lifestyle: care instructions yarauz Not available 01/01/2024 16:23:45 ndice de masa corporal: instrucciones de cuidado - [body mass index: care instructions] yarauz Not available 01/01/2024 16:23:46 aprenda acerca d e la diabetes tipo 2 - [learning about type 2 diabetes] yarauz Not available 01/01/2024 16:23:45 diabetes tipo 2: instrucciones de cuidado - [type 2 diabetes: care instructions] yarauz Not available 01/01/2024 16:23:46 test results Schedule to see manager sterile processing use mole skin in shoes Uncontrolled Diabetes Mellitus complications , blindness, kidney failure, amputations etc. Take your diabetes medication daily check blood sugars fasting and post prandial --keep a log--bring to next appointment stop concentrated sugars--follow 1500 meal plan exercise 50-60 minutes daily on most days check your feet for sores, cuts, etc., see eye doctor once a year see dentist every 6 months ortho referral-keep appointment yarauz Not available 01/01/2024 16:22:46 04/13/2024 [id number] osteoartritis: instrucciones de cuidado - [osteoarthritis: care instructions] yarauz Not available 04/13/2024 17:26:44 alergias: instrucciones de cuidado - [allergies: care instructions] yarauz Not available 04/13/2024 17:26:45 C MO manejar las alergias: instrucciones de cuidado - [managing your allergies: care instructions] yarauz Not available 04/13/2024 17:26:44 Dejar el tabaco: Instrucciones de cuidado - [Quitting Tobacco: Care Instructions] yarauz Not available 04/13/2024 17:26:44 aprenda acerca d e la diabetes tipo 2 - [learning about type 2 diabetes] yarauz Not available 04/13/2024 17:26:44 diabetes tipo 2: instrucciones de cuidado - [type 2 diabetes: care instructions] yarauz Not available 04/13/2024 17:26:44 vacuna contra la influenza (gripe): instrucciones de cuidado - [influenza (flu) vaccine: care instructions] yarauz Not available 04/13/2024 17:26:44 verrugas: instrucciones de cuidado - [warts: care instructions] yarauz Not available 04/13/2024 17:26:44 A healthy lifestyle: care instructions yarauz Not available 04/13/2024 17:26:44 ndice de masa corporal: instrucciones de cuidado - [body mass index: care instructions] yarauz Not available 04/13/2024 17:26:44 medical record request* [email or web address] Not available 04/13/2024 17:47:07 test results Schedule to see manager sterile processing use mole skin in shoes Uncontrolled Diabetes Mellitus complications , blindness, kidney failure, amputations etc. Take your diabetes medication daily check blood sugars fasting and post prandial --keep a log--bring to next appointment stop concentrated sugars--follow 1500 meal plan exercise 50-60 minutes daily on most days check your feet for sores, cuts, etc., see eye doctor once a year see dentist every 6 months ortho referral-keep appointment yarauz Not available 04/13/2024 17:06:43 07/17/2024 [id number] alergias: instrucciones de cuidado - [allergies: care instructions] yarauz Not available 07/17/2024 17:11:05 C MO manejar las alergias: instrucciones de cuidado - [managing your allergies: care instructions] yarauz Not available 07/17/2024 17:11:06 osteoartritis: instrucciones de cuidado - [osteoarthritis: care instructions] yarauz Not available 07/17/2024 17:11:05 Dejar el tabaco: Instrucciones de cuidado - [Quitting Tobacco: Care Instructions] yarauz Not available 07/17/2024 17:11:05 aprenda acerca d e la diabetes tipo 2 - [learning about type 2 diabetes] yarauz Not available 07/17/2024 17:11:06 diabetes tipo 2: instrucciones de cuidado - [type 2 diabetes: care instructions] yarauz Not available 07/17/2024 17:11:05 verrugas: instrucciones de cuidado - [warts: care instructions] yarauz Not available 07/17/2024 17:11:05 A healthy lifestyle: care instructions yarauz Not available 07/17/2024 17:11:06 ndice de masa corporal: instrucciones de cuidado - [body mass index: care instructions] yarauz Not available 07/17/2024 17:11:05 aprenda acerca del peso saludable - [learning about healthy weight] yarauz Not available 07/17/2024 17:11:05 medical record request* [email or web address] Not available 07/17/2024 17:37:29 test results Schedule to see manager sterile processing use mole skin in shoes Uncontrolled Diabetes Mellitus complications , blindness, kidney failure, amputations etc. Take your diabetes medication daily check blood sugars fasting and post prandial --keep a log--bring to next appointment stop concentrated sugars--follow 1500 meal plan exercise 50-60 minutes daily on most days check your feet for sores, cuts, etc., see eye doctor once a year see dentist every 6 months ortho referral-keep appointment yarauz Not available 07/17/2024 17:12:00 Reason for Referral Orthopedic Sports Medicine R eferral for Pain of right shoulder joint Pain of right shoulder joint Referring Physician: Dai Fernandez, Family Medicine, Encounter Date: 10/15/2023 Results Created Date Observation Date Name Description Value Unit Range Abnormal Flag Note LastModifiedBy Organization Detail LastModifiedTime 10/15/19 24 10/15/2023 HbA1c (hemo globi n A1c), blood HbA1c 8.3 Not Available In-Office Order Internal Use Only DO Not Attach Compendium DO Not Attach Compendium, Do Not Delete/merge, [id number] 10/15/2023 16:11:24 10/15/19 24 10/15/2023 glucjorge garvin se, blood Blood Glucose: mg/dl 142 Not Available In-Off ice Order Internal Use Only DO Not Attach Compendium DO Not Attach Compendium, Do Not Delete/merge, 10/15/2023 16:11:24 07/17/20 24 01/01/2024 HbA1c (hemo globi n A1c), blood HbA1c 8.2 Not Available In-Office Order Internal Use Only DO Not Attach Compendium DO Not Attach Compendium, Do Not Delete/merge, [id number] 01/01/2024 15:39:34 01/01/20 24 01/01/2024 gluco se, finge rstic k, blood Blood Glucose: mg/dl 159 Not Available In-Off ice Order Internal Use Only DO Not Attach Compendium DO Not Attach Compendium, Do Not Delete/merge, [id number] 01/01/2024 15:40:56 01/13/20 24 01/14/2024 ALBUM IN/CR EATIN INE RATIO ,URIN E creatinine, urine 185.7 mg/dL notest ab. Not Available [facility] ([facility]) [address] [place], [address], 01/14/2024 10:14:59 01/13/20 24 01/14/2024 ALBUM IN/CR EATIN INE RATIO ,URIN E albumin, urine 15.9 ug/mL notest ab. Not Available [facility] ([facility]) [address] [facility], [place], [address], 01/14/2024 10:14:59 01/13/20 24 01/14/2024 ALBUM IN/CR EATIN INE RATIO ,URIN E alb/creat ratio 9 mg/g_ creat 0-29 Nat l: 0 - 29 Moder ately incre ased: 30 - 300 Sever chester incre ased: >300 Not Available [facility] ([facility]) [address] [facility], [place], [address], 01/14/2024 10:14:59 01/13/20 24 01/14/2024 TSH RFX ON ABNOR MAL TO FREE T4 TSH 1.280 uIU/m L 0.450- 4.500 Not Available [facility] ([facility]) [address] [place], [address], 01/14/2024 10:15:00 01/13/20 24 01/13/2024 LIPID PANEL cholesterol, total 163 mg/dL 100-19 9 Not Available [facility] [address] [place] [address], [address], 01/14/2024 11:17:08 01/13/20 24 01/13/2024 LIPID PANEL triglyceride s 330 mg/dL 0-149 above high normal Not Available [facility] [address] [place] [address], [address], 01/14/2024 11:17:08 01/13/20 24 01/13/2024 LIPID PANEL HDL cholesterol 34 mg/dL 40-999 below low normal Not Available [facility] [address] [place] [address], [address], 01/14/2024 11:17:08 01/13/20 24 01/13/2024 LIPID PANEL VLDL cholesterol mary 66 mg/dL 5-40 above high normal Not Available [facility] [address] [place] [address], [address], 01/14/2024 11:17:08 01/13/20 24 01/13/2024 LIPID PANEL LDL chol calc (nih) 114 mg/dL 0-99 above high normal Not Available [facility] [address] [place] [address], [address], 01/14/2024 11:17:08 01/13/20 24 01/13/2024 COMP. METAB OLIC PANEL (14) glucose 198 mg/dL 70-99 above high normal Not Available [facility] [address] [place], [address], 01/14/2024 11:17:08 01/13/20 24 01/13/2024 COMP. METAB OLIC PANEL (14) BUN 16 mg/dL 6-24 Not Available [facility] [address] [place] [address], [address], 01/14/2024 11:17:08 01/13/20 24 01/13/2024 COMP. METAB OLIC PANEL (14) creatinine 0.56 mg/dL 0.76-1 .27 below low normal Not Available [facility] [address] [place], [address], 01/14/2024 11:17:08 01/13/20 24 01/13/2024 COMP. METAB OLIC PANEL (14) eGFR 115 >=60 Units for eGFR value s are mL/mi n/1.7 3 The eGFR Calcu latio n has not been valid ated for patie nts under the age of 18. If test resul ts are displ ayed for a patie nt under the age of 18, disre jeanie that value . Not Available [facility] [address] [place], [address], 01/14/2024 11:17:08 01/13/20 24 01/13/2024 COMP. METAB OLIC PANEL (14) BUN/creatini ne ratio 29 9-23 above high normal Not Available [facility] [address] [place], [address], 01/14/2024 11:17:08 01/13/20 24 01/13/2024 COMP. METAB OLIC PANEL (14) sodium 137 mmol/ L 134-14 4 Not Available [facility] [address] [place], [address], 01/14/2024 11:17:08 01/13/20 24 01/13/2024 COMP. METAB OLIC PANEL (14) potassium 4.3 mmol/ L 3.5-5. 2 Not Available [facility] [address] [place], [address], 01/14/2024 11:17:08 01/13/20 24 01/13/2024 COMP. METAB OLIC PANEL (14) chloride 99 mmol/ L 96-106 Not Available [facility] [address] [place], [address], 01/14/2024 11:17:08 01/13/20 24 01/13/2024 COMP. METAB OLIC PANEL (14) carbon dioxide, total 24 mmol/ L Not Available [facility] [address] [place] [address], [address], 01/14/2024 11:17:08 01/13/20 24 01/13/2024 COMP. METAB OLIC PANEL (14) calcium 9.7 mg/dL 8.7-10 .2 Not Available [facility] [address] [place], [address], 01/14/2024 11:17:08 01/13/20 24 01/13/2024 COMP. METAB OLIC PANEL (14) protein, total 7.4 g/dL 6.0-8. 5 Not Available [facility] [address] [place], [address], 01/14/2024 11:17:08 01/13/20 24 01/13/2024 COMP. METAB OLIC PANEL (14) albumin 5.0 g/dL 3.9-4. 9 above high normal Not Available [facility] [address] [place], [address], 01/14/2024 11:17:08 01/13/20 24 01/13/2024 COMP. METAB OLIC PANEL (14) globulin, total 2.4 g/dL 1.5-4. 5 Not Available [facility] [address] [place], [address], 01/14/2024 11:17:08 01/13/20 24 01/13/2024 COMP. METAB OLIC PANEL (14) A/G ratio 2.0 1.2-2. 2 Not Available [facility] [address] [place], [address], 01/14/2024 11:17:08 01/13/20 24 01/13/2024 COMP. METAB OLIC PANEL (14) bilirubin, total 0.3 mg/dL 0.0-1. 2 Not Available [facility] [address] [place], [address], 01/14/2024 11:17:08 01/13/20 24 01/13/2024 COMP. METAB OLIC PANEL (14) alkaline phosphatase 73 IU/L 44-121 Not Available [facility] [address] [place], [address], 01/14/2024 11:17:08 01/13/20 24 01/13/2024 COMP. METAB OLIC PANEL (14) AST (SGOT) 15 IU/L 0-40 Not Available [facility] [address] [place], [address], 01/14/2024 11:17:08 01/13/20 24 01/13/2024 COMP. METAB OLIC PANEL (14) ALT (SGPT) 19 IU/L 0-32 Not Available [facility] [address] [place], [address], 01/14/2024 11:17:08 01/13/20 24 01/13/2024 MICRO SCOPI C EXAMI NATIO N WBC COMMEN T NONE SEEN Not Available [facility] [address] [place], [address], 01/14/2024 11:17:09 01/13/20 24 01/13/2024 MICRO SCOPI C EXAMI NATIO N RBC COMMEN T NONE SEEN Not Available [facility] [address] [place], [address], 01/14/2024 11:17:09 01/13/20 24 01/13/2024 MICRO SCOPI C EXAMI NATIO N epithelial cells (non renal) 2+ Not Available [facility] [address] [place], [address], 01/14/2024 11:17:09 01/13/20 24 01/13/2024 MICRO SCOPI C EXAMI NATIO N bacteria COMMEN T NONE SEEN Not Available [facility] [address] [place], [address], 01/14/2024 11:17:09 01/13/20 24 01/13/2024 MICRO SCOPI C EXAMI NATIO N yeast 1+ abnormal Not Available [facility] [address], [place], [address], 01/14/2024 11:17:09 01/13/20 24 01/13/2024 MICRO SCOPI C EXAMI NATIO N comment COMMEN T [facility] ent Urine 3+ NOT ESTB. N Not Available [facility] [address], [place], [address], 01/14/2024 11:17:09 01/13/20 24 01/13/2024 URINA LYSIS , COMPL ETE specific gravity SEE BELOW: 1.005- 1.030 abnormal >=1.0 30 Not Available [facility] [address], [place], [address], 01/14/2024 11:17:10 01/13/20 24 01/13/2024 URINA LYSIS , COMPL ETE pH 5.5 5.0-7. 0 Not Available [facility] [address] [facility], [place], [address], 01/14/2024 11:17:10 01/13/20 24 01/13/2024 URINA LYSIS , COMPL ETE urine-color YELLOW yellow Not Available [facility] [address], [place], [address], 01/14/2024 11:17:10 01/13/20 24 01/13/2024 URINA LYSIS , COMPL ETE appearance CLOUDY abnormal Not Available [facility] [address], [place], [address], 01/14/2024 11:17:10 01/13/20 24 01/13/2024 URINA LYSIS , COMPL ETE WBC esterase COMMEN T NEGAT WILD Not Available [facility] [address], [place], [address], 01/14/2024 11:17:10 01/13/20 24 01/13/2024 URINA LYSIS , COMPL ETE protein COMMEN T NEGAT WILD Not Available [facility] [address], [place], [address], 01/14/2024 11:17:10 01/13/20 24 01/13/2024 URINA LYSIS , COMPL ETE glucose 250 mg/dL negati ve abnormal Not Available [facility] [address], [place], [address], 01/14/2024 11:17:10 01/13/20 24 01/13/2024 URINA LYSIS , COMPL ETE ketones COMMEN T negati ve NEGAT WILD Not Available [facility] [address], [place], [address], 01/14/2024 11:17:10 01/13/20 24 01/13/2024 URINA LYSIS , COMPL ETE occult blood COMMEN T NEGAT WILD Not Available [facility] [address], [place], [address], 01/14/2024 11:17:10 01/13/20 24 01/13/2024 URINA LYSIS , COMPL ETE bilirubin COMMEN T NEGAT WILD Not Available [facility] [address], [place], [address], 01/14/2024 11:17:10 01/13/20 24 01/13/2024 URINA LYSIS , COMPL ETE urobilinogen ,semi-qn 0.2 eu/dL 0.2-1. 0 Not Available [facility] [address], [place], [address], 01/14/2024 11:17:10 01/13/20 24 01/13/2024 URINA LYSIS , COMPL ETE nitrite, urine COMMEN T negati ve NEGAT WILD Not Available [facility] [address], [place], [address], 01/14/2024 11:17:10 01/13/20 24 01/14/2024 AMBIG UOUS TEST ORDER ambiguous test order COMMEN T Test not perfo rmed. Unabl e to perfo rm test due to curre nt unava ilabi lity of reage nts or disco ntinu ation of test. [id number] CBC,N O DIFF/ PLATE LET SEE 211-3 36-41 37-1 FOR 97719 2 CBC,P LATEL ET,NO DIFF Not Available [facility] ([facility]) [address] [place], [address], 01/14/2024 14:13:25 01/13/20 24 01/14/2024 SAADIA EN AUTHO RIZAT ION written authorizatio n COMMEN T Tahiritt en Autho rizat ion Recei jessee. Autho rizat ion recei jessee from ORIGI NAL ORDER 01-13 Logge d by Juan Sewell Not Available [facility] ([facility]) [address] [place], [address], 01/14/2024 17:10:07 01/13/20 24 01/14/2024 CBC, PLATE LET, NO DIFFE RENTI AL WBC 9.7 x10e3 /uL 3.4-10 .8 Not Available [facility] ([facility]) [address] [place], [address], 01/14/2024 17:10:08 01/13/20 24 01/14/2024 CBC, PLATE LET, NO DIFFE RENTI AL RBC 4.40 x10e6 /uL 3.77-5 .28 Not Available [facility] ([facility]) [address] [place], [address], 01/14/2024 17:10:08 07/29/20 24 01/14/2024 CBC, PLATE LET, NO DIFFE RENTI AL hemoglobin 13.6 g/dL 11.1-1 5.9 Not Available [facility] ([facility]) [address] [facility], [place], [address], 01/14/2024 17:10:08 01/13/20 24 01/14/2024 CBC, PLATE LET, NO DIFFE RENTI AL hematocrit 39.4 % 34.0-4 6.6 Not Available [facility] ([facility]) [address] [facility], [place], [address], 01/14/2024 17:10:08 01/13/20 24 01/14/2024 CBC, PLATE LET, NO DIFFE RENTI AL MCV 90 fL 79-97 Not Available [facility] ([facility]) [address] [facility], [place], [address], 01/14/2024 17:10:08 01/13/20 24 01/14/2024 CBC, PLATE LET, NO DIFFE RENTI AL MCH 30.9 pg 26.6-3 3.0 Not Available [facility] ([facility]) [address] [facility], [place], [address], 01/14/2024 17:10:08 01/13/20 24 01/14/2024 CBC, PLATE LET, NO DIFFE RENTI AL MCHC 34.5 g/dL 31.5-3 5.7 Not Available [facility] ([facility]) [address] [facility], [place], [address], 01/14/2024 17:10:08 01/13/20 24 01/14/2024 CBC, PLATE LET, NO DIFFE RENTI AL RDW 12.4 % 11.7-1 5.4 Not Available [facility] ([facility]) [address] [facility], [place], [address], 01/14/2024 17:10:08 01/13/20 24 01/14/2024 CBC, PLATE LET, NO DIFFE RENTI AL platelets 328 x10e3 /uL 150-45 0 Not Available [facility] ([facility]) [address] [facility], [place], [address], 01/14/2024 17:10:08 04/13/20 24 04/13/2024 HbA1c (hemo globi n A1c), blood HbA1c 8.5 Not Available In-Office Order Internal Use Only DO Not Attach Compendium DO Not Attach Compendium, Do Not Delete/merge, [id number] 04/13/2024 16:17:41 04/13/20 24 04/13/2024 gluco se, finge rstic k, blood Blood Glucose: mg/dl 108 Not Available In-Off ice Order Internal Use Only DO Not Attach Compendium DO Not Attach Compendium, Do Not Delete/merge, [id number] 04/13/2024 16:17:42 07/17/19 25 07/17/2024 HbA1c (hemo globi n A1c), blood HbA1c 8.6 Not Available In-Office Order Internal Use Only DO Not Attach Compendium DO Not Attach Compendium, Do Not Delete/merge, [id number] 07/17/2024 16:13:09 07/17/19 25 07/17/2024 gluco se, finge rstic k, blood Blood Glucose: mg/dl 171 Not Available In-Off ice Order Internal Use Only DO Not Attach Compendium DO Not Attach Compendium, Do Not Delete/merge, 07/17/2024 16:13:10 01/01/20 24 08/04/2016 MRI, thora cic spine , w/o contr ast No observ ation record ed. [facility] [address], [place], [address], 01/02/2024 15:43:17 02/14/20 24 02/14/2024 XR, kim heriberto, 2 or more view No observ ation record ed. [facility] [address], [place], [address], 04/13/2024 17:10:44 02/14/20 24 02/14/2024 CT, cervi mary spine , w/o contr ast No observ ation record ed. [facility] [address] [facility] [address], [place], [address], 04/13/2024 17:10:44 05/09/20 24 05/09/2024 XR, calca neus, 2 or more view No observ ation record ed. [facility] [address] [facility] [address], [place], [address], 07/17/2024 16:51:44 Result Notes None recorded. Problems Name Problem SNOMED Code Status Onset Date Resolution Date Notes Provider Name and Address Organization Details Recorded Time Chronic constipat ion 379868712 Active 2018 Shahrzad cuadra [place], [place] [facility] 2 15:59:40 Multigrav jimmy of advanced maternal age 589842426 Completed 201908/28/2021 Vernell Richter [place] [facility] 2 15:54:39 and type 2 diabetes mellitus 450085865 Completed 201902/10/2020 Lex Avalos [place] [facility] 0 11:00:41 Mixed hyperlipi demia 819711515 Active 2020 Shahrzad cuadra [place] [facility] 2 15:59:36 Hypertens ion screening Active 2020 OSMIN Hawk Attn: Teodoro matias,[address] [place], [address], [place] - [facility] 2 16:38:15 Bunion 477805265 Active 2020 OSMIN Hawk Attn: Teodoro matias,[address] [place], [address], [place] [facility] 2 16:38:15 Normal body mass index 29687095 Active 2021 OSMIN Hawk Attn: Teodoro matias,[address] [facility], [place], [address], [place] - [facility] 2 16:38:15 Thoracic back pain 608090740 Active 2022 OSMIN Hawk Attn: Accountdana g,[address] [facility], [place], [address], [place] - [facility] 3 16:11:16 Hypertrig lyceridem ia 879968747 Active 2022 OSMIN Hawk Attn: Accountin g,[address] [facility], [place], [address], [facility] - [facility] 4 16:47:00 Overweigh t 531775137 Active 2022 Dai Fernandez [facility] Attn: Accountdana matias,[address] [facility], [place], [address], [facility] - [facility] 3 16:34:17 Body mass index 25-29 - overweigh t 556840071 Active 2022 Dai Fernandez [facility] Attn: Teodoro matias,[address] [facility], [place], [address], [facility] - [facility] 4 16:47:00 Pain of right shoulder joint 756142545718 20421 Active 2023 Dai Fernandez [facility] Attn: Teodoro matias,[address] [facility], [place], [address], [facility] - [facility] 4 16:45:37 Tobacco user 311354731 Active 2023 RICHARD HawkCARON Attn: Teodoro matias,[address] [facility], [place], [address], [facility] - [facility] 4 16:22:32 Verruca vulgaris 72926744 Active 2023 RICHARD HawkCARON Attn: Teodoro matias,[address] [facility], [place], [address], [place] - [facility] 4 16:26:48 Pain in right heel 394486037645 9105 Active 2024 RICHARD HawkCARON Attn: Teodoro matias,[address] [place], [address], [place] [facility] 5 16:52:38 Puncture wound of foot 49089528 Completed 10/07/2015 Vernell Richter [place] [facility] 6 15:41:24 Vaginitis and vulvovagi nitis Completed 10/07/2015 Vernell Rich[place] [facility] 6 15:41:24 Epigastri c pain 51413163 Completed 10/07/2015 Vernell [place] [facility] 6 15:41:24 Backache 202775784 Completed 04/14/2019 Vernell Rich[place] [facility] 9 16:28:05 Strain of trapezius muscle 677045966 Completed 12/20/2017 Vernell [place] [facility] 8 15:51:19 Type 2 diabetes mellitus 47952584 Active Shahrzad cuadra [place] [facility] 2 15:59:32 Hyperlipi demia 58830285 Completed 08/16/2020 RICHARD HawkCARON Attn: Teodoro matias,[address] [place], [address], [place] [facility] 1 16:16:31 Migraine 48018943 [facility] Attn: Teodoro g,[address] [place], [address], [place] [facility] 2 16:38:15 Allergic rhinitis 61831129 Active Shahrzad cuadra [place] [facility] 2 15:59:45 Acute sinusitis 72370859 Completed 12/20/2017 Vernell Rich[place] [facility] 8 15:51:10 Problem Notes None recorded. Procedures Surgical History Date Name Laterality Status Provider Name and Address Organization Details Recorded Time 3 Date of Last Mammogram completed Vernell Richter RN [facility] 07/12/2023 16:16:10 3 Date of Last Pap Smear completed Vernell Richter RN [facility] 07/12/2023 16:16:30 8 IUD Removal completed OSMIN Hawk Attn: Accounting,[address] [facility], [place], [address], [facility] 02/28/2018 14:49:45 1 Colposcopy completed Joyce Forde MA [facility] 09/28/2014 16:54:10 Imaging Results Imaging Date Name Status LastModified by [facility] Details LastModified Time 08/04/2016 MRI, thoracic spine, w/o contrast completed [address], [address], 01/02/2024 15:43:17 02/14/2024 XR, shoulder, 2 or more view completed [address], [address], 04/13/2024 17:10:44 02/14/2024 CT, cervical spine, w/o contrast completed [address], [address], 04/13/2024 17:10:44 05/09/2024 XR, calcaneus, 2 or more view completed [address], [address], 07/17/2024 16:51:44 Procedure Notes None recorded. Medical Equipment None Reported. Allergies No known drug allergies Medications Name Sig Start Date Stop Date Status Note LastModified by Organization Details LastModified Time Prescript ion - Prior Authoriza tion Request USE DIRECTED 07/13 completed Not Available Not Available Not Available cyclobenz aprine 10 mg tablet Take 1 tablet twice a day by oral route. 04/13 completed Not Available Not Available Not Available Mirena 21 mcg/24 hr (up to 8 years) 52 mg intrauter ine device Take by intraute rine route. 06/02 completed Not Available Not Available Not Available atorvasta tin 40 mg tablet TAKE 1 TABLET BY MOUTH ONCE DAILY IN THE EVENING CHOLESTE ROL 2024 active Not Available Not Available Not Avai lable methocarb margarita 500 mg tablet Take 2 tablets by oral route as needed. 12/20 completed Not Available Not Available Not Available metformin 500 mg tablet TAKE 1 TABLET BY MOUTH TWICE DAILY 04/13 completed Not Available Not Available Not Available acetamino phen 325 mg tablet Take 2 tablets every 6 hours by oral route. 04/14 completed Not Available Not Available Not Available Zyrtec-D 5 mg-120 mg tablet,ex tended release Take 1 tablet every 12 hours by oral route. 07/12 completed Not Available Not Available Not Available ammonium lactate 12 % lotion Apply 1 applicat ion every day by topical route, for dry skin. 2024 active Not Available Not Available Not Avai lable azithromy emre 250 mg tablet TAKE 2 TABLETS (500 MG) BY ORAL ROUTE ONCE DAILY FOR 1 DAY THEN 1 TABLET (250 MG) BY ORAL ROUTE ONCE DAILY FOR 4 DAYS 12/20 completed Not Available Not Available Not Available IBU 800 mg tablet Take 1 tablet 3 times a day by oral route with meals for 30 days. 08/28 completed Not Available Not Available Not Available pravastat in 40 mg tablet Take 1 tablet every day by oral route. 09/05 completed Patient wants to become Not Available Not Available Not Available fluconazo le 150 mg tablet TAKE 1 TABLET BY MOUTH ONCE DAILY 01/23 completed Not Available Not Available Not Available hydrocodo ne 5 mg-acetam inophen 325 mg tablet TAKE 1 TABLET BY MOUTH EVERY 6 HOURS NEEDED FOR PAIN 07/12 completed Not Available Not Available Not Available Medrol (Magdaleno) 4 mg tablets in a dose pack Take by oral route as directed on package 12/21 completed Not Available Not Available Not Available prednison e 20 mg tablet TAKE 1 TABLET BY MOUTH ONCE DAILY FOR 5 DAYS 07/17 completed Not Available Not Available Not Available clotrimaz ole 1 % vaginal cream Insert 1 applicat orful by vaginal route at HS.. 01/31 completed Not Available Not Available Not Available aspirin 81 mg tablet,de layed release TAKE 1 TABLET BY MOUTH ONCE DAILY IN THE EVENING FOR [facility] 2024 active Not Available Not Available Not Avai lable ketorolac 30 mg/mL (1 mL) injection solution 2014 active Not Available Not Available Not Avai lable glimepiri de 2 mg tablet Take 1 tablet every day by oral route for 30 days. 09/05 completed Patient wants to become Not Available Not Available Not Available Depo-Medr ol 80 mg/mL suspensio n for injection 08/09 completed Not Available Not Available Not Available Vitamin tablet Take 1 tablet every day by oral route for 30 days. 12/20 completed Not Available Not Available Not Available amoxicill in 875 mg tablet Take 1 tablet every 12 hours by oral route for 10 days. 04/14 completed Not Available Not Available Not Available OneTouch Ultra Test strips USE DIRECTED TO CHECK BLOOD SUGARS WHILE FASTING AND 2 HOURS POST PRANDIAL active Not Available Not Available No t Available imiquimod 5 % topical cream packet APPLY TO THE AFFECTED AREA(S) 5 TIMES PER WEEK FOR WART active Not Available Not Available No t Available cimetidin e 200 mg tablet TAKE 1 TABLET BY MOUTH TWICE DAILY 07/17 completed Not Available Not Available Not Available metformin 1,000 mg tablet Take 1000 mg twice a day by oral route, for diabetes mellitus . 2024 active Not Available Not Available Not Avai lable ranitidin e 150 mg tablet Take 1 tablet twice a day by oral route. 09/05 completed PRN Not Available Not Available Not Available lidocaine 5 % topical patch active Not Available Not Available Not Available Humulin N NPH U-100 Insulin (isophane susp) 100 unit/mL subcutane ous 01/14 completed Not Available Not Available Not Available niacin 500 mg tablet Take 2 tablets every day by oral route. 12/20 completed Not Available Not Available Not Available diclofena c sodium 75 mg tablet,de layed release 07/17 completed Not Available Not Available Not Available pravastat in 20 mg tablet Take 1 tablet every day by oral route. 04/23 completed Not Available Not Available Not Available insulin lispro (U-100) 100 unit/mL subcutane ous solution 02/09 completed Not Available Not Available Not Available ibuprofen 600 mg tablet Take 600 mg every 6 hours by oral route, for BREAKTHR OUGH MIGRAINE S. 2024 active Not Available Not Available Not Avai lable fluticaso ne propionat e 50 mcg/actua tion nasal spray,terrance pension [place] 1 spray twice a day by intranas al route for 30 days, for NASAL CONGESTI ON. 2024 active Not Available Not Available Not Avai lable loratadin e 10 mg tablet Take 1 tablet every day by oral route. 07/17 completed Not Available Not Available Not Available naproxen 500 mg tablet Take 1 tablet twice a day by oral route. active Not Available Not Available No t Available amoxicill in 875 mg-potass ium clavulana te 125 mg tablet Take 1 tablet every 12 hours by oral route. active Not Available Not Available No t Available Neosporin (frank-miky- polym) 3.5 mg-400 unit-5,00 0 unit/gram top ointment Apply 1 applicat ion 3 times a day by topical route. 2014 active Not Available Not Available Not Avai lable cyclobenz aprine 5 mg tablet Take 1 tablet twice a day by oral route. 2024 active Not Available Not Available Not Avai lable nitrofura ntoin monohydra te/macroc rystals 100 mg capsule 08/25 completed Not Available Not Available Not Available fenofibra te 160 mg tablet Take 1 tablet every day by oral route, for HYPERTRI GLYCERID EMIA. 2024 active Not Available Not Available Not Avai lable Metamucil Sugar-Roderick e (aspartam e) 3.4 gram/5.8 gram oral powder Take 3.4 g every day by oral route. 08/28 completed Not Available Not Available Not Available 28 mg iron-800 mcg tablet Take 1 tablet every day by oral route. 08/16 completed Not Available Not Available Not Available Vascepa 1 gram capsule Take by oral route for 30 days. 10/08 completed changed to fenofibr ate Not Available Not Available Not Available BD Insulin Syringe Ultra-Fin e 0.3 mL 31 gauge x 10/30 completed Not Available Not Available Not Available BD Insulin Syringe Ultra-Fin e 0.5 mL 31 gauge x 16 02/09 completed Not Available Not Available Not Available Virtussin AC 10 mg-100 mg/5 mL oral liquid 12/20 completed Not Available Not Available Not Available OneTouch Ultra Blue Test Strip USE DIRECTED TO CHECK BLOOD SUGARS WHILE FASTING AND 2 HOURS POST PRANDIAL 08/28 completed Not Available Not Available Not Available BD Veo Insulin Syringe Ultra-Fin e 1/2 mL 31 gauge x 15/64 02/09 completed Not Available Not Available Not Available OneTouch Ultra2 Meter active Not Available Not Available Not Available OneTouch Delica Plus Lancet 33 gauge USE DIRECTED TO CHECK BLOOD SUGARS FASTING AND 2 HOURS POST PRANDIAL active Not Available Not Available No t Available Vitals Date Recorded Body height Body temperature Body mass index (BMI) Body weight Oxygen saturation Oxygen saturation in Arterial blood by Pulse oximetry Heart rate Systolic blood pressure Diastolic blood pressure Provider Name and Address Organization Details Last Updated DateTime 4 168.91 cm 98.4 [degF] 26.5 kg/m2 92985.1 3 g 98 % 98 % 62 /min 102 mm[Hg] 78 mm[Hg] Shahrzad cuadra [place] - [facility] 16:12:13 Date Recorded Body height Oxygen saturation Oxygen saturation in Arterial blood by Pulse oximetry Heart rate Body temperature Body mass index (BMI) Body weight Systolic blood pressure Diastolic blood pressure Provider Name and Address Organization Details Last Updated DateTime 4 168.91 cm 98 % 98 % 74 /min 98.2 [degF] 25.4 kg/m2 77455.7 8 g 110 mm[Hg] 64 mm[Hg] Shahrzad cuadra [place] - [facility] 4 15:40:29 Date Recorded Body height Provider Name an d Address Organization Details Last Updated DateTime 01/13/2024 168.91 cm Shahrzad Jerniganbushrarakesh cuadra MA [facility] 01/13/2024 10:24:47 Date Recorded Body height Body mass index (BMI) Body weight Oxygen saturation Oxygen saturation in Arterial blood by Pulse oximetry Heart rate Body temperature Systolic blood pressure Diastolic blood pressure Provider Name and Address Organization Details Last Updated DateTime 4 168.91 cm 26.4 kg/m2 18775.3 3 g 99 % 99 % 72 /min 98.2 [degF] 120 mm[Hg] 80 mm[Hg] Shahrzad Glory TREY cuadra [facility] 4 17:02:26 Date Recorded Body height Body mass index (BMI) Body weight Heart rate Oxygen saturation Oxygen saturation in Arterial blood by Pulse oximetry Body temperature Systolic blood pressure Diastolic blood pressure Provider Name and Address Organization Details Last Updated DateTime 168.91 cm 26.1 kg/m2 98574.1 5 g 73 /min 98 % 98 % 98.5 [degF] 120 mm[Hg] 70 mm[Hg] Vernell Richter RN [facility] 16:23:13 Social History Question Answer Notes LastModified by Organizat ion Details LastModified Time Tobacco Smoking Status Current Some Day Smoker Vernell Richter RN [facility], [facility] 10/03/2022 16:13:12 Do You Have An Advance Directive? No [email or web address] Information not available 06/15/2014 What Is Your Level Of Alcohol Consumption? None [email or web address] Information not available 06/15/2014 Are You Blind Or Do You Have Difficulty Seeing? No Information not available 08/16/2020 Is Blood Transfusion Acceptable In An Emergency? Yes Information not available 09/13/2015 What Is Your Level Of Caffeine Consumption? Occasional [email or web address] Information not available 06/15/2014 How Much Tobacco Do You Chew? None [email or web address] Information not available 06/15/2014 In The 14 Days Before Symptom Onset, Have You Had Close Contact With A Laboratory-confir med COVID-19 While That Case Was Ill? No Information not available 08/16/2020 In The 14 Days Before Symptom Onset, Have You Had Close Contact With A Person Who Is Under Investigation For COVID-19 While That Person Was Ill? No Information not available 08/16/2020 Have You Been To An Area Known To Be High Risk For COVID-19? No [email or web address] Information not available 08/13/2019 Are You Currently Employed? Yes Information not available 09/13/2015 Are You Deaf Or Do You Have Serious Difficulty Hearing? No Information not available 08/16/2020 What Type Of Diet Are You Following? REGULAR [email or web address] Information not available 06/15/2014 Which Illicit Or Recreational Drugs Have You Used? None [email or web address] Information not available 09/13/2015 Do You Or Have You Ever Used E-cigarettes Or Vape? 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 No [email or web address] Information not available 06/15/2014 Hard Of Hearing Or Deaf In One Or Both Ears? No [email or web address] Information not available 06/15/2014 Legally Blind In One Or Both Eyes? No [email or web address] Information no t available 06/15/2014 Live Alone Or With Others? With Others [email or web address] Information not available 09/13/2015 Marital Status Informati on not available 06/15/2014 What Was The Date Of Your Most Recent Tobacco Screening? 07/17/2024 Information not available 07/17/2024 How Many Children Do You Have? 2 [email or web address] Information not available 09/13/2015 Performs Monthly Self-breast Exam? Yes [email or web address] Information no t available 06/15/2014 Do You Use Protection During Sex? Usually [email or web address] Information not available 09/13/2015 What Is Your Relationship Status? [email or web address] Information not available 09/13/2015 Do You Use Your Seat Belt Or Car Seat Routinely? Yes Information not available 08/16/2020 Seat Belts Used Routinely Yes [email or web address] Information not available 06/15/2014 Are You Sexually Active? Yes Information not available 09/13/2015 Smoke Alarm In Home Yes Information not available 06/15/2014 Do You Have Smoke And Carbon Monoxide Detectors In Your Home? Yes Information not available 08/16/2020 Are You Passively Exposed To Smoke? No Information no t available 08/16/2020 Do You Or Have You Ever Used Smokeless Tobacco? Never Used Smokeless Tobacco Information not available 04/14/2019 How Much Tobacco Do You Smoke? No [email or web address] Information not available 06/15/2014 General Stress Level Medium [email or web address] Information not available 06/15/2014 Do You Feel Stressed (tense, Restless, Nervous, Or Anxious, Or Unable To Sleep At Night)? [id number] Information not available 12/28/2021 Do You Use Any Illicit Or Recreational Drugs? No Information not available 02/21/2021 Do You Use Sunscreen Routinely? No [email or web address] Information not available 06/15/2014 Has Tobacco Cessation Counseling Been Provided? No Information not available 04/03/2022 Do You Or Have You Ever Used Any Other Forms Of Tobacco Or Nicotine? No Information not available 02/21/2021 Sex: Female Functional Status Question Answer Note LastModified by Organization D etails LastModified Time Are you able to care for yourself? Yes Information not available 08/16/2020 What is your exercise level? Moderate [email or web address] Information not available 06/15/2014 Mental Status None recorded. Family History Relationship Description Onset Age of this Age Resolved Age Notes LastModified by Organization Details LastModified Time Mother Alive [email or web address] Not available 0 03/09/2016 15:41:26 Mother Hypercholest erolemia [email or web address] Not available 2017 16:29:04 Mother CREST syndrome [email or web address] Not available 2017 16:29:29 Father Alive [email or web address] Not available 0 03/09/2016 15:41:26 Medical History Condition Response Heart Problems N Other N Breast Cancer N Thyroid Problems N Kidney or Bladder Problems N GI Problems N Lung Disease N Depression N Acne N Breast Problem N Eating Disorder N Anemia N Anesthesia Complications N Headaches/Migraines N Anxiety Disorder N Diabetes Y Ovarian Cancer N Blood Transfusions N Arthritis N Polyps N Infertility N Acid Reflux (GERD) Y Cancer N Stroke N Abuse/Domestic Violence N Asthma N Allergies Endometriosis N High Cholesterol Y Hepatitis N Heart Disease N Fibromyalgia N Headaches Y Pre-Eclampsia N Hypertension N Osteoporosis N Kidney Disease N Gynecological History Statement/Question Response Abnormal Pap Y Date of Last Mammogram 04/27/2023 Flow Light Date of LMP 07/01/2024 STIs/STDs N HPV Vaccine N Duration of Flow (days) 4 Age at Menarche 13 Current Control Method IUD Age at First Child 24 Frequency of Cycle (Q days) 30 Sexually Active? Y Menses Monthly N Date of Last Pap Smear 01/31/2023 Sexual Problems? N LMP Approximate Desired Control Method IUD Obstetrics History GPAL:G 5 P 3 0 2 3 Type Value Multiple Births 0 Full Term 3 Induced 0 Spontaneous 2 Premature 0 Living 3 Ectopics 0 Total 5 Immunizations Vaccine Type Date Status Note Provider Nam e and Address Organization Details Recorded Time Tdap 0 completed Lex couch, [place] [facility] 02/10/2020 10:59:01 COVID-19, mRNA, LNP-S, PF, 100 mcg/0.5mL dose or 50 mcg/0.25mL dose 1 completed Vernell Richter RN [place], [place] [facility] 11/17/2020 16:01:35 COVID-19, mRNA, LNP-S, PF, 100 mcg/0.5mL dose or 50 mcg/0.25mL dose 1 completed BRANDYN Garcia, [place] [facility] 11/17/2020 16:01:22 Influenza, split virus, quadrivalent, PF 6 completed Not Available [facility] 07/04/2019 02:51:04 pneumococcal polysaccharide PPV23 7 completed [facility] 07/04/2019 02:42:35 Tdap 3 completed Lex couch, [place] [facility] 02/10/2020 10:59:01 Influenza, high-dose, trivalent, PF 7 completed Not Available [facility] 07/04/2019 02:44:55 Influenza, split virus, quadrivalent, PF 8 completed Not Available [facility] 07/04/2019 02:44:14 Influenza, split virus, quadrivalent, preservative 9 completed Not Available [facility] 07/04/2019 02:46:43 Pneumococcal conjugate PCV 13 1 completed Lex Avalos [place], [place] [facility] 06/21/2020 10:39:11 Influenza, split virus, quadrivalent, PF 1 completed Lex Avalos [place], [place] [facility] 05/23/2021 17:36:59 Influenza, split virus, quadrivalent, preservative 2 completed OSMIN Hawk Attn: Accounting,[address] [facility], [place], [address], [place] [facility] 04/03/2022 17:52:54 Hep B, adult 3 completed OSMIN Hawk Attn: Accounting[address] [place], [address], [place] [facility] 07/06/2022 16:33:09 Hep B, adult 3 completed Shahrzad Carvajal [place] [facility] 10/03/2022 17:11:30 Hep B, adult 3 completed Vernell [place] [facility] 01/16/2023 17:01:51 Influenza, split virus, quadrivalent, preservative 4 completed OSMIN Hawk Attn: Accounting[address] [place], [address], [place] [facility] 07/12/2023 17:11:39 Pneumococcal conjugate PCV20, polysaccharide [id number] conjugate, adjuvant, PF 4 completed OSMIN Hawk Attn: Accounting[address] [place], [address], [place] [facility] 07/12/2023 17:11:39 Influenza, split virus, trivalent, preservative 4 completed Shahrzad Carvajal [place] [facility] 04/14/2024 13:10:49 Influenza, split virus, trivalent, preservative 4 completed Not Available [facility] 07/04/2019 02:46:07 Influenza, split virus, trivalent, preservative 5 completed Not Available [facility] 07/04/2019 02:32:29 Past Encounters Encounter ID Performer Location Encounter Start Date Encounter Closed Date Diagnosis/Indication Diagnosis SNOMED-CT Code Diagnosis ICD10 Code Diagnosis Note [id number] [facility] [address] [address] 06/15/2014 16:12:27 06/16/2014 17:39:21 Type 2 diabetes mellitus 66218625 Hyperlipidemia 37022071 Migraine 20420376 Allergic rh[facility] 17813906 [id number] [facility] [address] [address] 06/18/2014 11:12:49 06/21/2014 18:19:06 Type 2 diabetes mellitus 95039148 Hyperlipidemia 61021924 [id number] [facility] ([facility]) [address] [place] [address] 09/03/2014 14:15:57 09/07/2014 12:27:11 Gynecologic examination 77150097 Cervicovag inal cytology: Low grade squamous intraepithelial lesion [id number] Colposcopy in the past 2010. Since then normal Paps. [id number] [facility] [address], [place] [address] 09/22/2014 16:08:46 09/28/2014 16:09:23 Type 2 diabetes mellitus 13341260 Hyperlipidemia 77205132 Migraine 21148051 Allergic rhinitis 73427236 [id number] Vernlel Richter RN [facility] [address], [place] [address] 11/30/2014 14:38:53 12/04/2014 12:58:56 Puncture wound of foot 88029521 Patient received TDAP vaccine 12/2012 keep foot clean/dry do not use hydrogen peroxide or alcohol to clean wound use plain soap and water for cleaning wound monitor area for symptoms of infection pus/draina ge, increasing pain use shoe insert for cushioning effect will clean area with normal saline and apply Neosporin/ dressing today as patient stands 8 hours daily will give rtw stamt for12/04/19 15 elevate left leg prn [id number] [facility] [address], [place] [address] 12/10/2014 16:28:40 12/14/2014 13:20:49 Puncture wound of foot 84453236 keep foot clean/dry do not use hydrogen peroxide or alcohol to clean wound use plain soap and water for cleaning wound monitor area for symptoms of infection pus/draina ge, increasing pain use shoe insert for cushioning effect elevate left leg prn Type 2 lorraine betes mellitus 37104842 Vaginitis and vulvovaginitis 211301062 [id number] [facility] [address], [place] [address] 01/25/2015 16:07:01 01/31/2015 13:00:40 Type 2 diabetes mellitus 95065122 Hyperlipidemia 44351260 Migraine 49883448 Allergic rhinitis 31302300 Epigastric pain 36767601 Backache 048549335 [id number] [facility] [address], [place] [address] 06/02/2015 15:46:03 06/07/2015 11:37:09 Type 2 diabetes mellitus 36884369 E11.9 Hyperlipidemia 30727415 E78.5 Patient to continue otc Niacin 500mg once daily (Her insurance doesnt cover) Migraine 03383834 G43.90 9 Allergic rhinitis 788970 04 J30.9 Epigastric pain 15304654 R10.13 Backache 907959518 M54.9 will have the patient take Flexeril for muscle spasm/back discomfort Massage ice/heat prn if s/s persist will send for xray/pt prn [id number] [facility] [address], [place] [address] 06/27/2015 10:19:49 07/05/2015 22:29:11 Hyperlipidemia 40383146 E78.5 Type 2 lorraine betes mellitus 02147721 E11.9 [id number] [facility] [address], [place] [address] 08/09/2015 15:55:01 08/15/2015 14:42:27 Backache 197562572 M54.9 will have the patient take Flexeril for muscle spasm/back discomfort Massage ice/heat prn Strain of trapezius muscle 389163568 S46.811D [id number] Baljinder Covington MD [facility] ([facility]) [address] [place] [address] 09/13/2015 14:35:32 09/14/2015 09:01:26 Gynecologic examination 80171309 Z01.419 no family Hx of breast cancer [id number] [facility] [address] [place] [address] 10/07/2015 14:47:52 10/14/2015 11:25:54 Type 2 diabetes mellitus 06086972 E11.9 Hyperlipidemia 13699025 E78.5 Migraine 12323052 G43.90 9 Allergic rhinitis 050033 04 J30.9 Epigastric pain 09498877 R10.13 Backache 661223396 M54.9 Strain of trapezius muscle 567335186 S46.811D [id number] [facility] [address] [place] [address] 03/09/2016 15:26:03 03/09/2016 16:21:45 Type 2 diabetes mellitus 35016378 E11.9 Hyperlipidemia 88935428 E78.5 Migraine 17912052 G43.90 9 Allergic rhinitis 875882 04 J30.9 Epigastric pain 80545901 R10.13 Backache 334506509 M54.9 Acute sinusitis 82529750 J01.90 [id number] [facility] [address] [place] [address] 07/13/2016 15:40:20 07/20/2016 12:18:39 Type 2 diabetes mellitus 04624026 E11.9 Hyperlipidemia 27171014 E78.5 Migraine 69874139 G43.90 9 Allergic rhinitis 981472 04 J30.9 Epigastric pain 82762617 R10.13 Backache 770569235 M54.9 Acute sinusitis 80225075 J01.90 Thoracic back pain 85460 8004 M54.6 [id number] [facility] [address] [place] [address] 07/27/2016 10:29:35 08/06/2016 15:49:22 Diabetes mellitus 81117969 E11.9 Hyperlipidemia 87965014 E78.5 [id number] [facility] [address], [place] [address] 12/21/2016 15:59:09 12/25/2016 16:58:50 Type 2 diabetes mellitus 74704302 E11.9 Hyperlipidemia 60308591 E78.5 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--at pharmacy Migraine 04258942 G43.90 9 Allergic rhinitis 875278 04 J30.9 Epigastric pain 94130041 R10.13 Backache 786001824 M54.9 MRI-TS results Spondylosi s Thoracic spondylosis 387 656870 M47.814 back stretches no heavy lifting ice heat as necessary HIV screening 859889879 Z11.4 Administra tion of pneumococcal vaccine 89777276 Z23 [id number] Baljinder Covington MD [facility] ([facility]) [address] [place] [address] 02/13/2017 15:28:19 02/15/2017 10:36:29 Gynecologic examination 80639256 Z01.879 [id number] Baljinder Covington MD [facility] ([facility] SURGE[facility]) [address] [place] [address] 03/18/2017 11:21:19 03/25/2017 11:37:28 Gynecologic examination 98726726 Z01.411 Episodic t ension-type headache 824002919 G44.182 [id number] [facility] [address] [address] 04/23/2017 15:49:02 04/29/2017 15:01:54 Type 2 diabetes mellitus 11749351 E11.9 Hyperlipidemia 15530676 E78.5 Migraine 50745705 G43.90 9 Allergic rhinitis 412342 04 J30.9 Epigastric pain 79510719 R10.13 Backache 646555357 M54.9 MRI-TS results Spondylosi s Thoracic spondylosis 387 809750 M47.814 back stretches no heavy lifting ice heat as necessary [id number] Jose Lee MD [facility] [address] [place] [address] 08/23/2017 15:35:25 09/03/2017 16:55:46 Type 2 diabetes mellitus 86692164 E11.9 stable continue present regimen Migraine 37960904 G43.90 9 will refill ibuprofen for prn use Allergic rhinitis 939347 04 J30.9 continue antihistam ine and nasal spray Epigastric pain 82544051 R10.13 Has ranitidine at home Backache 748268177 M54.9 MRI-TS results Spondylosi s Thoracic spondylosis 387 286919 M47.814 back stretches no heavy lifting ice heat as necessary Mixed hyperlipidemia 267 849514 E78.2 will check labs today continue present meds [id number] Dai Fernandez [facility] [address] [address] 12/20/2017 15:22:34 12/25/2017 15:26:35 Migraine 40861100 G43.909 will refill ibuprofen for prn use Type 2 lorraine betes mellitus 40018194 E11.9 stable continue present regimen Mixed hyperlipidemia 267 270483 E78.2 labs from last visit indicated TRIg still very high continue present meds stressed LSM Patient to buy OTC Niacin 500mg Allergic rhinitis 886908 04 J30.9 continue antihistam ine and nasal spray Epigastric pain 56613331 R10.13 Has ranitidine at home Backache 655196105 M54.9 MRI-TS results Spondylosi s [id number] Dai Fernandez [facility] [address] [address] 02/28/2018 14:05:49 02/28/2018 17:50:49 Family planning surveillance 551213783 Z30.09 IUD insertion 07/16/2013 by 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 She will use condoms for contracept ion. Patient has a current normal pap on file (03-19-2017 ). Removal of intrauterine device 22347794 Z30.432 no problems condoms for next 3 months prn [id number] Dai Fernandez [facility] [address] [place] [address] 05/06/2018 09:54:46 05/14/2018 15:12:51 Type 2 diabetes mellitus 70783099 E11.9 stable continue present regimen Migraine 76698987 G43.90 9 will refill ibuprofen for prn use Mixed hyperlipidemia 267 014616 E78.2 labs from last visit indicated TRIg still very high continue present meds stressed LSM Patient to buy OTC Niacin 500mg Allergic rhinitis 527072 04 J30.9 continue antihistam ine and nasal spray Epigastric pain 42404903 R10.13 Has ranitidine at home Backache 630293050 M54.9 MRI-TS results Spondylosi s [id number] Tarik Becker (TRANSPLANT SURGEON) [address] [place] [address] 06/12/2018 10:57:25 06/13/2018 10:49:40 Threatened miscarriage 97521834 O20.0 --appears to be s/p spontaneou s miscarriag e per history, cramping and bleeding have subsided --Rh+ --beta hcg 284.9 on 06/11/18 [id number] Tarik Becker (TRANSPLANT SURGEON) [address] [place] [address] 08/25/2018 15:31:20 08/26/2018 08:50:05 Miscarriage 19311107 O03.9 --spontane ous 08/21/18, seen in [facility] ER, urine preg test negative today, Rh+, no complaints , unsure if she desires to try again, taking PNV, being treated for diabetes and hypertrigl ycerides [id number] Dai Fernandez [facility] [address] [place] [address] 09/05/2018 16:06:05 09/09/2018 17:40:37 Type 2 diabetes mellitus 89072879 E11.9 HA1C 7.2 today will start Metformin 500mg daily Check bs fasting and 2 hours and at bedtime keep log and call report in 2 weeks for adjustment s to medicine Chronic constipation 236 641462 K59.09 increase fiber, fruits, veggies etc., may try Fiber one prn Increase daily water intake Allergic rhinitis 462896 04 J30.9 May use Benadryl prn and nasal spray prn Migraine 62888069 G43.90 9 Since patient is planning recommend Tylenol 325mg prnWill stop Ibuprofen Hyperlipidemia 15808268 E78.5 Since patient is planning will stop PravacholP atient to try to manage this problem with diet and walking08/23 cho 163 TRIG 444 HDL 32 LDL 60 Acute sphe noidal sinusitis 13223096 J01.30 [id number] Tarik Barboza [facility] ([facility] SURGE[facility]) [address] [place] [address] 09/10/2018 18:22:59 09/11/2018 08:27:27 Gynecologic examination 06626464 Z01.419 --Pap up to date, exam normal Trying to conceive 33548 9001 Z31.9 --planning conception in a couple months--ta osiris PNV daily--off cholestero l med and changed to metformin for diabetes medication per primary [id number] Rachna Vogt [facility] [address] [address] 09/12/2018 10:44:24 09/12/2018 16:55:49 Hyperlipidemia 93023741 E78.5 [id number] Dai Fernandez [facility] [address], [place] [address] 12/12/2018 14:56:18 12/12/2018 16:28:18 Type 2 diabetes mellitus 41445296 E11.9 HA1C 6.7 today will continue Metformin 500mg daily Check bs fasting and 2 hours and at bedtime keep log and call report in 2 weeks for adjustment s to medicine Hyperlipidemia 40055682 E78.5 Total cho, Trig elevated with low HDLPatient is planning unable to take statin Chronic constipation 236 024530 K59.09 increase fiber, fruits, veggies etc., may try Fiber one prn Increase daily water intake Allergic rhinitis 489840 04 J30.9 May use Benadryl prn and nasal spray prn Migraine 92177223 G43.90 9 Since patient is planning recommend Tylenol 325mg prnWill stop Ibuprofen Acute sphe noidal sinusitis 67407223 J01.30 [id number] [facility] [address] [place] [address] 04/14/2019 16:17:50 04/14/2019 17:57:14 Type 2 diabetes mellitus 71674380 E11.9 -Pt reports controlled BG values-Mos t recent A1C 6.7; Today's POC: 6.4-Will continue regimen Hyperlipidemia 41748593 E78.5 -Current regimen maintained -Pt reports symptoms controlled -Lab to follow; lab order printed; prior lipid panel with remarkable elevations Allergic rhinitis 059230 04 J30.9 -Current regimen maintained -Pt reports symptoms controlled detection examination 55005883 Z32.00 -Pt trying to get -H x of spontaneou s abortions- Has not had a missed period; reported light cramping-R esults (-) Administra tion of influenza vaccine 39717788 Z23 -Pt appropriat e for flu vaccine [id number] Dai Fernandez [facility] [address] [address] 08/13/2019 16:00:20 08/14/2019 08:47:13 Type 2 diabetes mellitus 12252263 E11.9 38 y/o HF who is 4 months and has DM2 Patient seeing MD at [facility] for 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 Multigravi da of advanced maternal age 708111041 O09.529 continue your /D M2 care with your OB Depression screening 171 086080 Z13.31 negative [id number] Dai Fernandez [facility] [address] [address] 02/10/2020 10:51:15 02/11/2020 06:43:44 Type 2 diabetes mellitus 33611915 E11.9 39 y/o HF whohas DM2 delivered on 01/13/2020 Patient was seeing MD at [facility] for Patient was restarted on Metformin 500 mg bid HA1C today 6.9 Accu check 169 fasting She will be using mirena. Hyperlipidemia 20250328 E78.5 04/28/2019 Total cho 153Trig 190 elevatedHD L 40 lowLDL 87 normalPati ent is unable to take statin Body mass index 25-29 - overweight 583924370 Z68.[id number] [facility] [address] [address] 02/11/2020 10:54:04 02/12/2020 08:03:26 Type 2 diabetes mellitus without complication 355123144 E11.9 Hyperlipidemia 60943567 E78.5 [id number] JUAN WARNER [facility] [address], [place] [address] 05/18/2020 15:50:25 05/19/2020 06:25:32 Type 2 diabetes mellitus 81934121 E11.9 -Pt reports controlled BG values-Mos t recent A1C 6.9 at goal per the ADA guidelines -Will continue regimen Hyperlipidemia 55528087 E78.5 -Current regimen maintained -Pt reports symptoms controlled -Lab to follow; prior lipid panel with remarkable elevations -Pt states she is no longer or breastfeed ing Chronic constipation 236 839344 K59.09 -Current regimen maintained -Pt reports symptoms controlled -RFs as appropriat e Allergic rhinitis 043728 04 J30.9 -Current regimen maintained -Pt reports symptoms controlled Administra tion of pneumococcal vaccine 80241000 Z23 -Pt appropriat e for pneumonia vaccine [id number] Lex Avalos [facility] [address] [address] 06/21/2020 10:26:41 06/22/2020 20:07:59 Administration of pneumococcal vaccine 99068809 Z23 -Pt appropriat e for pneumonia vaccine Hyperlipidemia 40428966 E78.5 -Current regimen maintained -Pt reports symptoms controlled -Lab to follow; prior lipid panel with remarkable elevations -Pt states she is no longer or breastfeed ing [id number] RICHARD Hawk[facility] [address] [place] [address] 08/16/2020 15:33:53 08/17/2020 15:09:39 Type 2 diabetes mellitus 86377347 E11.9 39 y/o HF whohas DM2 delivered on 01/13/2020 Patient was seeing MD at [facility] for Patient was restarted on Metformin 500 mg bid HA1C today 6.9 Accu check 169 fasting Body mass index 25-29 - overweight 150093538 Z68.25 Mixed hyperlipidemia 267 796636 E78.2 04/28/2019 Total cho 153 Trig 190 elevated HDL 40 low LDL 87 normal Patient is unable to take statin 02/11/2020 cho 416.3 trig 170.2 HDL 28.3 LDL 81 Patient started on Atorvastat in 40mg once daily per PUBLIC POLICY COORDINATOR T. Mond on 05/18/2020 06/21/2020 cho 108.5 trig 188 HDL 37.6 LDL 40 [id number] Jose Lee MD [facility] [address], [place] [address] 11/17/2020 15:57:17 11/18/2020 17:59:44 Type 2 diabetes mellitus 67720000 E11.9 40y/o HF who has DM2 delivered on 01/13/2020 Patient was seeing MD at [facility] for Patient was restarted on Metformin 500 mg bid Last HA1C 6.9 BS at home 95-120 non fasting Mixed hyperlipidemia 267 922328 E78.2 04/28/2019 Total cho 153 Trig 190 elevated HDL 40 low LDL 87 normal Patient is unable to take statin 02/11/2020 cho 416.3 trig 170.2 HDL 28.3 LDL 81 Patient started on Atorvastat in 40mg once daily per PUBLIC POLICY COORDINATOR T. Mond on 05/18/2020 06/21/2020 cho 108.5 trig 188 HDL 37.6 LDL 40 Avoid all breads, potatoes, cereal, pasta, rice, margarine, refined sugars, milk yogurt, ice cream, juices, soda (including diet), beer, and manmade or manufactur ed desserts. Enjoy steak, fish, chicken (no skin), pork, butter, vegetables , beans, nuts, whole eggs, cheese (low fat or skim), cream in your coffee. Rufina [id number] M21.61 9 buy 'moleskin shoe inserts lose weight see manager sterile processing may need to order diabetic shoes will defer to manager sterile processing Allergic rhinitis 760182 04 J30.9 May use Benadryl prn and nasal spray prn Hypertensi on screening 897940224 Z13.6 B/P 108/68 L arm on 08/16/2020 [id number] MARJAN BASURTO DPM [facility] [address] [place] [address] 11/22/2020 13:55:33 11/23/2020 07:37:43 Acquired bilateral hallux valgus [id number] M20.11 M20.12 Foot pain 32142060 M79.6 72 M79.783 [id number] MARJAN BASURTO DPM [facility] [address] [place] [address] 12/12/2020 16:06:36 12/15/2020 12:05:29 Acquired bilateral hallux valgus [id number] 3227158 M20.11 M20.12 Foot pain 58588726 M79.6 72 M79.827 [id number] Dai Fernandez, [facility] [address] [address] 02/21/2021 15:45:34 02/22/2021 12:36:26 Type 2 diabetes mellitus 73063530 E11.9 40y/o HF who has DM2 delivered on 01/13/2020 Patient was seeing MD at [facility] for Patient was restarted on Metformin 500 mg bid Last HA1C 6.9 BS at home 95-120 non fasting Mixed hyperlipidemia 267 709173 E78.2 04/28/2019 Total cho 153 Trig 190 elevated HDL 40 low LDL 87 normal Patient is unable to take statin 02/11/2020 cho 416.3 trig 170.2 HDL 28.3 LDL 81 Patient started on Atorvastat in 40mg once daily per PUBLIC POLICY COORDINATOR Coco Warner on 05/18/2020 06/21/2020 cho 108.5 trig 188 HDL 37.6 LDL 40 Avoid all breads, potatoes, cereal, pasta, rice, margarine, refined sugars, milk yogurt, ice cream, juices, soda (including diet), beer, and manmade or manufactur ed desserts. Enjoy steak, fish, chicken (no skin), pork, butter, vegetables , beans, nuts, whole eggs, cheese (low fat or skim), cream in your coffee. Bunion 040435719 M21.61 9 buy 'moleskin shoe inserts lose weight see manager sterile processing may need to order diabetic shoes will defer to manager sterile processing Allergic rhinitis 964778 04 J30.9 May use Benadryl prn and nasal spray prn Hypertensi on screening 521259758 Z13.6 B/P 108/68 L arm on 08/16/2020 Migraine 95276850 G43.90 9 [id number] Dai Fernandez [facility] [address], [place] [address] 05/23/2021 16:01:31 05/26/2021 07:58:43 Mixed hyperlipidemia 744653839 E78.2 04/28/2019 Total cho 153 Trig 190 elevated HDL 40 low LDL 87 normal Patient is unable to take statin 02/11/2020 cho 416.3 trig 170.2 HDL 28.3 LDL 81 Patient started on Atorvastat in 40mg once daily per PUBLIC POLICY COORDINATOR T. Mond on 05/18/2020 06/21/2020 cho 108.5 trig 188 HDL 37.6 LDL 40 Avoid all breads, potatoes, cereal, pasta, rice, margarine, refined sugars, milk yogurt, ice cream, juices, soda (including diet), beer, and man-made or manufactur ed desserts. Enjoy steak, fish, chicken (no skin), pork, butter, vegetables , beans, nuts, whole eggs, cheese (low fat or skim), cream in your coffee. Type 2 lorraine betes mellitus 09566633 E11.9 40y/o HF who has DM2 delivered on 01/13/2020 Patient was seeing MD at [facility] for Patient was restarted on Metformin 500 mg bid Last HA1C 7.7 BS at home 95-120 non fasting Migraine 82929993 G43.90 9 Allergic rhinitis 562523 04 J30.9 May use Benadryl prn and nasal spray prn Administra tion of influenza vaccine 62184304 Z23 [id number] Lex Avalos MA [facility] [address] [place] [address] 08/01/2021 10:14:39 08/02/2021 07:33:45 Type 2 diabetes mellitus 75281798 E11.9 40y/o HF who has DM2 delivered on 01/13/2020 Patient was seeing MD at [facility] for Patient was restarted on Metformin 500 mg bid Last HA1C 7.7 BS at home 95-120 non fasting [id number] Dai Fernandez, [facility] [address] [place] [address] 08/28/2021 15:47:45 08/31/2021 07:16:53 Type 2 diabetes mellitus 70246558 E11.9 40y/o HF who has DM2 delivered on 01/13/2020 Patient was seeing MD at [facility] for Patient was restarted on Metformin 500 mg bid HA1C 7.5 (patient has been forgetting evening dose) BS at home 95-120 non fasting Mixed hyperlipidemia 267 647415 E78.2 04/28/2019 Total cho 153 Trig 190 elevated HDL 40 low LDL 87 normal Patient is unable to take statin 02/11/2020 cho 416.3 trig 170.2 HDL 28.3 LDL 81 Patient started on Atorvastat in 40mg once daily per PUBLIC POLICY COORDINATOR Coco Warner on 05/18/2020 06/21/2020 cho 108.5 trig 188 HDL 37.6 LDL 22cho 97.6Trig 130HDL 38.3LDL 39Avoid all breads, potatoes, cereal, pasta, rice, margarine, refined sugars, milk yogurt, ice cream, juices, soda (including diet), beer, and man-made or manufactur ed desserts. Enjoy steak, fish, chicken (no skin), pork, butter, vegetables , beans, nuts, whole eggs, cheese (low fat or skim), cream in your coffee. Migraine 99327447 G43.90 9 Allergic rhinitis 515174 04 J30.9 May use Benadryl prn and nasal spray prn Screening for malignant neoplasm of cervix 232270387 Z12.4 Screening for malignant neoplasm of breast 060979086 Z12.39 [id number] Lex Avalos MA [facility] [address] [place] [address] 10/30/2021 16:32:51 11/06/2021 14:17:50 Type 2 diabetes mellitus 37165742 E11.9 40y/o HF who has DM2 delivered on 01/13/2020 Patient was seeing MD at [facility] for Patient was restarted on Metformin 500 mg bid HA1C 7.5 (patient has been forgetting evening dose) BS at home 95-120 non fasting [id number] Dai Fernandez [facility] [address] [place] [address] 12/28/2021 15:54:22 01/01/2022 10:41:20 Type 2 diabetes mellitus 28233442 E11.9 41y/o HF who has DM2 delivered on 01/13/2020 Patient was seeing MD at [facility] for Patient was restarted on Metformin 500 mg bid HA1C 7.6 (patient has been forgetting evening dose) BS at home 100-160 non fasting Mixed hyperlipidemia 267 868965 E78.2 04/28/2019 Total cho 153 Trig 190 elevated HDL 40 low LDL 87 normal Patient is unable to take statin 02/11/2020 cho 416.3 trig 170.2 HDL 28.3 LDL 81 Patient started on Atorvastat in 40mg once daily per PUBLIC POLICY COORDINATOR T. Mond on 05/18/2020 06/21/2020 cho 108.5 trig 188 HDL 37.6 LDL 22cho 97.6Trig 130HDL 38.3LDL 39Avoid all breads, potatoes, cereal, pasta, rice, margarine, refined sugars, milk yogurt, ice cream, juices, soda (including diet), beer, and man-made or manufactur ed desserts. Enjoy steak, fish, chicken (no skin), pork, butter, vegetables , beans, nuts, whole eggs, cheese (low fat or skim), cream in your coffee. Allergic rhinitis 732267 J30.9 May use Benadryl prn and nasal spray prn Migraine 98996749 G43.90 9 Depression screening 171 213956 Z13.31 negative Normal bod y mass index 66189238 Z68.24 BMI 24 [id number] Trueleigha Fernandez, [facility] [address] [place] [address] 04/03/2022 15:29:53 04/04/2022 15:38:42 Type 2 diabetes mellitus 73562690 E11.9 41y/o HF who has DM2 delivered on 01/13/2020 Patient was seeing MD at [facility] for Patient was restarted on Metformin 500 mg bid HA1C 7.6 (patient has been forgetting evening dose) BS at home 100-160 non fasting Mixed hyperlipidemia 267 165503 E78.2 04/28/2019 Total cho 153 Trig 190 elevated HDL 40 low LDL 87 normal Patient is unable to take statin 02/11/2020 cho 416.3 trig 170.2 HDL 28.3 LDL 81 Patient started on Atorvastat in 40mg once daily per PUBLIC POLICY COORDINATOR T. Timmy on 05/18/2020 06/21/2020 cho 108.5 trig 188 HDL 37.6 LDL 22cho 97.6Trig 130HDL 38.3LDL 39Avoid all breads, potatoes, cereal, pasta, rice, margarine, refined sugars, milk yogurt, ice cream, juices, soda (including diet), beer, and man-made or manufactur ed desserts. Enjoy steak, fish, chicken (no skin), pork, butter, vegetables , beans, nuts, whole eggs, cheese (low fat or skim), cream in your coffee. Allergic rhinitis 381121 J30.9 May use Benadryl prn and nasal spray prn Normal bod y mass index 35778293 Z68.24 BMI 24 Migraine 81686280 G43.90 9 Depression screening 171 241942 Z13.31 PHQ2-9 negative Mental hea lth screening 054305814 Z13.39 JAYY-7 negative Thoracic back pain 60833 8004 M54.6 Osteoarthritis 646899456 M19.90 Administra tion of influenza vaccine 66368625 Z23 [id number] Dai Fernandez [facility] [address] [place] [address] 07/05/2022 15:45:33 07/09/2022 13:46:05 Type 2 diabetes mellitus 82679767 E11.9 41y/o HF who has DM2 delivered on 01/13/2020 Patient was seeing MD at [facility] for Patient was restarted on Metformin 500 mg bid HA1C 7.6 (patient has been forgetting evening dose) BS at home 100-160 non fasting Mixed hyperlipidemia 267 498261 E78.2 04/28/2019 Total cho 153 Trig 190 elevated HDL 40 low LDL 87 normal Patient is unable to take statin 02/11/2020 cho 416.3 trig 170.2 HDL 28.3 LDL 81 Patient started on Atorvastat in 40mg once daily per PUBLIC POLICY COORDINATOR T. Mond on 05/18/2020 06/21/2020 cho 108.5 trig 188 HDL 37.6 LDL 22cho 97.6Trig 130HDL 38.3LDL 39Avoid all breads, potatoes, cereal, pasta, rice, margarine, refined sugars, milk yogurt, ice cream, juices, soda (including diet), beer, and man-made or manufactur ed desserts. Enjoy steak, fish, chicken (no skin), pork, butter, vegetables , beans, nuts, whole eggs, cheese (low fat or skim), cream in your coffee. Hypertensi on screening 233390165 Z13.6 B/P 108/68 L arm normal Allergic rhinitis 343394 04 J30.9 May use Benadryl prn and nasal spray prn Normal bod y mass index 29264940 Z68.24 BMI 24 Migraine 87892323 G43.90 9 Depression screening 171 717167 Z13.31 PHQ2-9 negative Mental hea lth screening 706745431 Z13.39 JAYY-7 negative Osteoarthritis 536649290 M19.90 Requires c ourse of hepatitis B vaccination 357499006 Z28.39 Has Dm2 needs Hep B series Bunion 874008709 M21.61 9 buy 'moleskin shoe inserts lose weight see manager sterile processing may need to order diabetic shoes will defer to manager sterile processing [id number] Lex Avalos MA [facility] [address] [place] [address] 09/19/2022 09:46:59 10/16/2022 16:17:38 Mixed hyperlipidemia 570439368 E78.2 04/28/2019 Total cho 153 Trig 190 elevated HDL 40 low LDL 87 normal Patient is unable to take statin 02/11/2020 cho 416.3 trig 170.2 HDL 28.3 LDL 81 Patient started on Atorvastat in 40mg once daily per PUBLIC POLICY COORDINATOR T. Mond on 05/18/2020 06/21/2020 cho 108.5 trig 188 HDL 37.6 LDL 22cho 97.6Trig 130HDL 38.3LDL 39Avoid all breads, potatoes, cereal, pasta, rice, margarine, refined sugars, milk yogurt, ice cream, juices, soda (including diet), beer, and man-made or manufactur ed desserts. Enjoy steak, fish, chicken (no skin), pork, butter, vegetables , beans, nuts, whole eggs, cheese (low fat or skim), cream in your coffee. [id number] [facility] [address] [place] [address] 10/03/2022 15:55:57 10/04/2022 14:40:36 Allergic rhinitis 26844826 J30.9 May use Benadryl prn and nasal spray prn Type 2 lorraine betes mellitus 95979063 E11.9 41y/o HF who has DM2 delivered on 01/13/2020 Patient was seeing MD at [facility] for Patient was restarted on Metformin 500 mg bid HA1C 8 (patient has been forgetting evening dose) BS at home 100-160 non fasting Mixed hyperlipidemia 267 751314 E78.2 04/28/2019 Total cho 153 Trig 190 elevated HDL 40 low LDL 87 normal Patient is unable to take statin 02/11/2020 cho 416.3 trig 170.2 HDL 28.3 LDL 81 Patient started on Atorvastat in 40mg once daily per PUBLIC POLICY COORDINATOR T. Mond on 05/18/2020 06/21/2020 cho 108.5 trig 188 HDL 37.6 LDL 22cho 97.6Trig 130HDL 38.3LDL 39 09/19/2022 cho 156trig 358HDL 38.9LDL 61.9 continue atorvastat in 40mg dailyvasce pa not coveredAvo id all breads, potatoes, cereal, pasta, rice, margarine, refined sugars, milk yogurt, ice cream, juices, soda (including diet), beer, and man-made or manufactur ed desserts. Enjoy steak, fish, chicken (no skin), pork, butter, vegetables , beans, nuts, whole eggs, cheese (low fat or skim), cream in your coffee. Overweight 228687679 E66 .3 BMI 25.8Ht Healthy weight range Migraine 51887542 G43.90 9 Osteoarthritis 146755055 M19.90 Depression screening 171 711675 Z13.31 PHQ2-9 negative Mental hea lth screening 686026316 Z13.39 JAYY-7 negative Requires c ourse of hepatitis B vaccination 329822777 Z28.39 Has Dm2 needs Hep B series Bunion 164319922 M21.61 9 buy 'moleskin shoe inserts lose weight see manager sterile processing may need to order diabetic shoes will defer to manager sterile processing referral given at last visit for removal consultati on Hypertriglyceridemia 302 707493 E78.2 Vaginitis 48209171 N76.0 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 Mond on 05/18/2020 06/21/2020 cho 108.5 trig 188 HDL 37.6 LDL 22cho 97.6Trig 130HDL 38.3LDL 39 09/19/2022 cho 156trig 358HDL 38.9LDL 61.9 continue atorvastat in 40mg dailyvasce pa not coveredAvo id all breads, potatoes, cereal, pasta, rice, margarine, refined sugars, milk yogurt, ice cream, juices, soda (including diet), beer, and man-made or manufactur ed desserts. Enjoy steak, fish, chicken (no skin), pork, butter, vegetables , beans, nuts, whole eggs, cheese (low fat or skim), cream in your coffee. [id number] Dai Fernandez, [facility] [address] [place] [address] 01/14/2023 15:54:58 01/17/2023 11:44:46 General examination of patient [id number] Z00.129 42 y/o HF presents for medical clearance exam prior to having bunion surgery. The patient has a history of DM2, HPLD, Allergic rhinitis, Migraines, OA, and L foot bunion. Her HA1C today is 7.4 and blood pressure is normal 108/70. She has no complaints . Type 2 lorraine betes mellitus 53662424 E11.9 42y/o HF who has DM2 delivered on 01/13/2020 Patient was seeing MD at [facility] for Patient was restarted on Metformin 500 mg bid HA1C 8 (patient has been forgetting evening dose) BS at home 100-160 non fasting Mixed hyperlipidemia 267 603861 E78.2 04/28/2019 Total cho 153 Trig 190 elevated HDL 40 low LDL 87 normal Patient is unable to take statin 02/11/2020 cho 416.3 trig 170.2 HDL 28.3 LDL 81 Patient re- started on Atorvastat in 40mg once daily per PUBLIC POLICY COORDINATOR T. Monbhupinder on 05/18/2020 06/21/2020 cho 108.5 trig 188 HDL 37.6 LDL 22cho 97.6Trig 130HDL 38.3LDL 39 09/19/2022 cho 156trig 358HDL 38.9LDL 61.9 12/31/2022 cho 132trig 301HDL 39LDL 47 continue atorvastat in 40mg dailyvasce pa not coveredAvo id all breads, potatoes, cereal, pasta, rice, margarine, refined sugars, milk yogurt, ice cream, juices, soda (including diet), beer, and man-made or manufactur ed desserts. Enjoy steak, fish, chicken (no skin), pork, butter, vegetables , beans, nuts, whole eggs, cheese (low fat or skim), cream in your coffee. Hypertriglyceridemia 302 228918 E78.2 12/31/2022 cho 132trig 301HDL 39LDL 47 Allergic rhinitis 582751 04 J30.9 May use Benadryl prn and nasal spray prn Overweight 160146208 E66 .3 BMI 25Ht 5' 6.5 Healthy weight range 120-155 Migraine 36428606 G43.90 9 Osteoarthritis 046701084 M19.90 Requires c ourse of hepatitis B vaccination 815951942 Z28.39 Has Dm2 needs Hep B series Bunion 719753341 M21.61 9 buy 'moleskin shoe inserts lose weight see manager sterile processing WILL BE HAVING SURGERY WITH manager sterile processing Depression screening 171 321552 Z13.31 PHQ2-9 negative Mental hea lth screening 171458948 Z13.39 JAYY-7 negative Body mass index 25-29 - overweight 049284597 Z68.25 BMI 25Ht 5' 6.5 Healthy weight range 120-155 Screening mammography 24 573959 Z12.31 Screening mammography of bilateral breasts 6322224105 55673 Z12.31 [id number] Ced Qiu MD [facility] [address] [place] [address] 01/31/2023 15:39:23 02/05/2023 11:31:17 Body mass index 25-29 - overweight 312721819 Z68.25 BMI 24.5Ht 5' 6.5 Healthy weight range 120-155 Gynecologi c examination 68151303 Z01.419 Counseled regarding contracept wild options, and need for contracept ion until no menses for 1 year. BSE reviewed and recommende d . Reviewed calcium needs, exercise, and prevention of osteoporos is . Reviewed normal perimenopa usal transition . Mammogram recommende d yearly . Colonoscop y recommende d at age 44. Depression screening 171 689748 Z13.31 PHQ2-9 negative Mental hea lth screening 231693336 Z13.39 JAYY-7 negative Screening for malignant neoplasm of breast 716261830 Z12.39 order given at last visit [id number] [facility] [address] [place] [address] 07/12/2023 16:06:12 07/17/2023 14:42:45 Type 2 diabetes mellitus 63943702 E11.9 42y/o HF who has DM2 delivered on 01/13/2020 Patient was seeing MD at [facility] for Patient was restarted on Metformin 500 mg bid HA1C 8 (patient has been forgetting evening dose) BS at home 100-160 non fasting Mixed hyperlipidemia 267 853479 E78.2 04/28/2019 Total cho 153 Trig 190 elevated HDL 40 low LDL 87 normal Patient is unable to take statin 02/11/2020 cho 416.3 trig 170.2 HDL 28.3 LDL 81 Patient re- started on Atorvastat in 40mg once daily per PUBLIC POLICY COORDINATOR T. Mond on 05/18/2020 06/21/2020 cho 108.5 trig 188 HDL 37.6 LDL 22cho 97.6Trig 130HDL 38.3LDL 39 09/19/2022 cho 156trig 358HDL 38.9LDL 61.9 12/31/2022 cho 132trig 301HDL 39LDL 47 continue atorvastat in 40mg dailyvasce pa not coveredAvo id all breads, potatoes, cereal, pasta, rice, margarine, refined sugars, milk yogurt, ice cream, juices, soda (including diet), beer, and man-made or manufactur ed desserts. Enjoy steak, fish, chicken (no skin), pork, butter, vegetables , beans, nuts, whole eggs, cheese (low fat or skim), cream in your coffee. Allergic rhinitis 478733 04 J30.9 May use Benadryl prn and nasal spray prn Hypertriglyceridemia 302 854262 E78.2 12/31/2022 cho 132trig 301HDL 39LDL 47 Overweight 063314760 E66 .3 BMI 26.3Ht Healthy weight range Migraine 33272528 G43.90 9 Osteoarthritis 612427763 M19.90 Reminded of BB warning with Ibuprofen Depression screening 171 921985 Z13.31 PHQ2-9 negative [facility] 530331857 Z13.39 JAYY-7 negative Asteatosis cutis 8560112 0 L85.3 Pain of ri ght shoulder joint 1761685888 6829376 M25.511 Refuses PT for right nowShe is exercising at home Administra tion of influenza vaccine 06181354 Z23 Administra tion of pneumococcal vaccine 63520515 Z23 [id number] [facility] [address] [address] 10/15/2023 16:00:52 10/18/2023 13:32:21 Type 2 diabetes mellitus 70290698 E11.9 diabetes mellitus Chronic worse A1c 8.3, Goal < 8.0Statin: yes SHYANNE/ARB: yes Foot Exam: completed in the
--- OUTSIDE RECORDS SUMMARY | 2024-10-13 07:28 | XMS_ITS | CONTINUITY OF CARE DOCUMENT ---
Author Name mignon crow Address Unknown Organization [facility] Address [address] [place] [address] Phone [phone] Care Team Providers Care Veterans' Coordinator Name Role Phone Kimberly [place], Harley Unavailable [phone] JIM CASING GRADER, YETZENIA Unavailable JIM CASING GRADER, YETZENIA Unavailable [phone] INSURANCE PROVIDERS Payer name Policy type / Coverage type Zach red libertarian [place] (2) Medicaid [id number]
--- OUTSIDE RECORDS SUMMARY | 2024-10-13 07:28 | XMS_ITS | Continuity of Care Document ---
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 Manager Name Role Phone PCS, Nurse Unavailable Unavailable Allergies, Adverse Reactions, Alerts Substance Reaction Status Criticality No Known Allergies Active No Inform ation Procedures Procedure Date Breast Risk Assessment OFFICE/OUTPATIENT VISIT, EST Counselor Visit Only Counselor Visit Only Counselor Visit Only Counselor Visit Only Counselor Visit Only Counselor Visit Only Counselor Visit Only Health Behavior Assessment Or Re-assess TELEHEALTH Breast Risk Assessment OFFICE/OUTPATIENT VISIT, [facility] CYTOPATH C/V AUTO FLUID REDO A-SPECIMEN HANDLING TB INTRADERMAL TEST Nurse Visit Only OFFICE/OUTPATIENT VISIT, EST X-RAY EXAM OF NECK SPINE OFFICE/OUTPATIENT VISIT, EST COMPLETE CBC W/AUTO DIFF WBC LIPID PANEL OFFICE/OUTPATIENT VISIT, EST OFFICE/OUTPATIENT VISIT, EST OFFICE/OUTPATIENT VISIT, EST COMPLETE CBC W/AUTO DIFF WBC COMPREHEN METABOLIC PANEL LIPID PANEL ASSAY THYROID STIM HORMONE As per patient privacy policy some of the clinical information may not be visible. Advance Directives Directive Yes / No Effective Date File Name No Information Encounters Encounter Description Practice Location Reason(s) For Visit Diagnoses Date Provider Providers Copied on Encounter [facility], [address] [place] [address], [id number], [place] tel: [phone] P [facility] General Medicine No Information 4 PCS Nurse. [address] [place] [address], [id number], [place]. tel:[phone] [facility], [address] [place] [address], [address], [place] tel: [phone] P [facility] General Medicine Cyst of left breastBreast pain, left Sep-0 4 Radha Tamara. [address], [place], [place], [id number], [place]. tel:[phone] OFFICE/OUTPA TIENT VISIT, EST [facility], [address] [place] [address], [address], [place] tel: [phone] P B General Medicine CBE (chief complaint) Oth personal risk factors, not elsewhere classifiedBody mass index (BMI) 28.0-28.9, adultBreast pain, leftEncounter for screening mammogram for breast cancerImmunization declined Sep-2 3 Radha Tamara. [address], [place], [place], [id number], [place]. tel:[phone] [facility], [address] [place] [address], [address], [place] tel:[phone] P B Mental Health Aug- 3 Denver Wharton. [address] [place] [address], [id number], [place]. tel:[phone] [facility], [address] [place] [address], [address], [place] tel: [phone] P B Mental Health 2 Timbo Lopez. [address] [place] [address], [id number], [place]. tel:[phone] [facility], [address] [place] [address], [address], [place] tel: [phone] L Navigator No Information 2 PCS Other Non Billable. [address] [place] [address], [id number], [place]. tel: [facility], [address] [place] [address], [address], [place] tel: [phone] L Navigator No Information 2 PCS Other Non Billable. [address] [place] [address], [id number], [place]. tel: [facility], [address] [place] [address], [address], [place] tel: [phone] L Navigator No Information 2 PCS Other Non Billable. [address] [place] [address], [id number], [place]. tel: [facility], [address] [place] [address], [address], [place] tel: [phone] L Navigator No Information 2 PCS Other Non Billable. [address] [place] [address], [id number], [place]. tel: [facility], [address] [place] [address], [address], [place] tel: [phone] L Navigator No Information 2 PCS Other Non Billable. [address] [place] [address], [id number], [place]. tel: [facility], [address] [place] [address], [address], [place] tel: [phone] L Navigator No Information 2 PCS Other Non Billable. [address] [place] [address], [id number], [place]. tel: [facility], [address] [place] [address], [address], [place] tel: [phone] L Navigator No Information 2 PCS Other Non Billable. [address] [place] [address], [id number], [place]. tel:[phone] [facility], [address] [place] [address], [address], [place] tel:[phone] P [facility] Mental Health 2 Denver Wharton. [address] [place] [address], [id number], [place]. tel:[phone] [facility], [address] [place] [address], [address], [place] tel: [phone] P Case Management No Information 2 PCS Other Non Billable. [address] [place] [address], [id number], [place]. tel:[phone] [facility], [address] [place] [address], [address], [place] tel: [phone] P [facility] Mental Health 2 Dnever Wharton. [address] [place] [address], [id number], [place]. tel:[phone] OFFICE/OUTPA TIENT VISIT, [facility], [address] [place] [address], [address], [place] tel: [phone] [facility] General Medicine PAP test (chief complaint) CBE (chief complaint) Body mass index (BMI) 26.0-26.9, adultOth personal risk factors, not elsewhere classifiedScreenin g for cervical cancerBreast painLeft lower quadrant pain 2 Sheldon Duff. [address] [place] [address], [place], [place], [id number], [place]. tel:[phone] [facility], [address] [place] [address], [address], [place] tel: [phone] C [facility] TB Clinic TB screening for job (chief complaint) HIV screening (chief complaint) Screening examination for pulmonary tuberculosis 4 [facility] Nurse. [address] [place] [address], [id number], [place]. tel:[phone] OFFICE/OUTPA TIENT VISIT, [facility], [address] [place] [address], [address], [place] tel: [phone] [facility] General Medicine No Information 0 Michael Pak. [address] [place] [address], [id number], [place]. [facility], [address] [place] [address], [address], [place] tel: [phone] P Radiology No Information 0 Damian Chaudhary. [address] [place] [address], [id number], [place]. tel:[phone] OFFICE/OUTPA TIENT VISIT, [facility], [address] [place] [address], [address], [place] tel: [phone] [facility] General [facility] No Information 0 Al Sinawi Ibis. [address] [place] [address], [id number], [place]. tel:[phone] [facility], [address] [place] [address], [address], [place] tel: [phone] P [facility] Laboratory HeadacheOther and unspecified hyperlipidemia 0 Al Sinawi Ibis. [address] [place] [address], [id number], [place]. tel:[phone] OFFICE/OUTPA TIENT VISIT, [facility], [address] [place] [address], [address], [place] tel: [phone] [facility] General Medicine No Information 0 Al Sinawi Ibis. [address] [place] [address], [id number], [place]. tel:[phone] OFFICE/OUTPA TIENT VISIT, [facility], [address] [place] [address], [address], tel: [phone] P [facility] General Medicine No Information 0 Al Shakeel Espanana. [address] [place] [address], [id number], [place]. tel:[phone] OFFICE/OUTPA TIENT VISIT, [facility], [address] [place] [address], [address], tel: [phone] P [facility] General Medicine Enthesopathy of unspecified site 9 Al Shakeel Baumann. [address] [place] [address], [id number], [place]. tel:[phone] [facility], [address] [place] [address], [facility], tel: [phone] Z [facility] No Information 9 [facility]. [address] [place] [address], [id number], [place]. As per patient privacy policy some of the clinical information may not be visible. Family History Family Member Type Diagnosis Age At Onset Mother Problem Diabetes mellitus Maternal uncle Problem Diabetes mellitus Maternal grandfather Problem hypertension Maternal uncle Problem hypercholesterolemia Mother Problem hypertension Mother Problem hypercholesterolemia Maternal uncle Problem hypertension Maternal grandfather Problem Diabetes mellitus Maternal grandfather Problem hypercholesterolemia Mother Problem stroke Immunizations Vaccine Date Status Comments [facility] refused Source: New Imm unization Record Pfizer-BioNTech COVID-19 Vaccine (EUA labeled) COMIRNATY (MERA labeled) administered Source: Other Re gistry Pfizer-BioNTech COVID-19 Vaccine (EUA labeled) COMIRNATY (MERA labeled) administered Source: Other Re gistry Fluzone, quadrivalent, preservative free administered Source: Other Sarah gorman Moderna COVID-19 Vaccine administered Roz rce: Other Registry Moderna COVID-19 Vaccine administered Roz rce: Other Registry Pfizer-BioNTech COVID-19 Vaccine administered Source: Other Regtd ry Pfizer-BioNTech COVID-19 Vaccine administered Source: Other Sarah gorman Prevnar 13 administered Source: Other R egistry BOOSTRIX administered Source: Other R egistry Fluzone, quadrivalent, preservative free administered Source: Other Sarah gorman Fluzone-High Dose administered Source: Ot her Registry PNEUMOVAX 23 administered Source: Other R egistry Fluzone, quadrivalent, preservative free administered Source: Other Sarah gorman Tdap administered Source: Other R egistry OPV administered Source: Other R egistry [id number], PED/ADL administer ed Source: New Immunization Record ORAL POLIO administered Source: New Imm unization Record TD, TETANUS-DIPHTHERIA administered Sourc e: New Immunization Record Measles administered Source: Other R egistry MEASLES VACCINE, SINGLE VALENT administer ed Source: New Immunization Record Payers Payer name Insurance type Covered alliance party ID Authorlenya ruben(s) [employer] Medicaid Medical [place] [id number] [employer] Medical [place] [id number] Social History Type Description Quantity Date Captured Comments Alcohol Use Details Unknown Caffeine Use Details Unknown Tobacco Use Status No Information Smoking Status No Information Sex Female Sexual Orientation Straight or heterosexual Dec Gender Identity Female Chief Complaint And Reason For Visit No Information Plan Of Treatment Date Type Action Status Goal Mammogram. Due on 0 due Goal Dental exam. Due on 024 due Goal Pap/HPV testing. Due on due Goal Hepatitis C scre ening. Due on due Goal HIV. Due on due Goal Health Literacy. Due on due Goal Breast Cancer Ri sk Assessment. Due on due Goal Cervical Cancer Risk Assessment. Due on due Goal Tdap. Due on due Goal Unhealthy drug u se screening. Due on due Goal Pneumococcal vac cine. Due on due Goal Self Management Goals. Due on due Goal PAP. Due on due Goal Nutritional Scre ening Assessment. Due on due Goal Influenza vaccin e. Due on due Goal Depression scree quyen. Due on due Goal Hep C AB-8472. Due on due Goal Unhealthy drug u se screening. Due on due Goal Mammogram. Due on 0 due Goal Depression scree quyen. Due on due Goal Breast Cancer Ri sk Assessment. Due on due Goal Hep C AB-8472. Due on due Goal Pneumococcal vac cine. Due on due Goal Cervical Cancer Risk Assessment. Due on due Goal Self Management Goals. Due on due Goal Dental exam. Due on due Goal Hepatitis C scre ening. Due on due Goal Nutritional Scre ening Assessment. Due on due Goal HIV. Due on due Goal Tdap. Due on due Goal Pap/HPV testing. Due on due Goal Health Literacy. Due on due Goal Influenza vaccin e. Due on due Goal PAP. Due on due Goal Influenza vaccin e. Due on due Goal Nutritional Scre ening Assessment. Due on due Goal Dental exam. Due on due Goal Breast Cancer Ri sk Assessment. Due on due Goal FIT-DNA. Due on due Goal Colonoscopy. Due on due Goal Unhealthy drug u se screening. Due on due Goal Hepatitis C scre ening. Due on due Goal Pneumococcal vac cine. Due on due Goal Mammogram. Due on 0 due Goal Health Literacy. Due on due Goal Tdap. Due on due Goal Depression scree quyen. Due on due Goal HIV. Due on due Goal FIT. Due on due Goal Cervical Cancer Risk Assessment. Due on due Goal Pap/HPV testing. Due on due Goal Hep C AB-8472. Due on due Goal Self Management Goals. Due on due Goal Dietary manageme nt education, guidance, and counseling completed Goal Health Literacy. Due on due Goal Mammogram. Due on 0 due Goal Pap/HPV testing. Due on due Goal HIV. Due on due Goal Influenza vaccin e. Due on due Goal FOBT. Due on due Goal Tdap. Due on due Goal Pneumococcal vac cine. Due on due Goal Hep C AB-8472. Due on due Goal Colonoscopy. Due on 023 due Goal Nutritional Scre ening Assessment. Due on due Goal Depression scree quyen. Due on due Goal Dental exam. Due on 023 due Goal Self Management Goals. Due on due Goal FIT. Due on due Goal Hepatitis C scre ening. Due on due Goal CT-Colonography. Due on due Goal FIT-DNA. Due on due Goal Unhealthy drug u se screening. Due on due Goal Pneumococcal vaccine due Goal Self Management Goals. Due on due Goal Mammogram. Due on due Goal Health Literacy. Due on due Goal Pap/HPV testing. Due on due Goal Hep C AB-8472. Due on due Goal Tdap. Due on due Goal Depression scree quyen. Due on due Goal Nutritional Scre ening Assessment. Due on due Goal Influenza vaccin e. Due on due Goal Dental exam. Due on due Goal Pneumococcal vaccine due Goal Pap/HPV testing. Due on due Goal Dental exam. Due on due Goal Influenza vaccin e. Due on due Goal Health Literacy. Due on due Goal Tdap. Due on due Goal Mammogram. Due on due Goal Nutritional Scre ening Assessment. Due on due Goal Hep C AB-8472. Due on due Goal Self Management Goals. Due on due Goal Depression scree quyen. Due on due Goal Pap/HPV testing. Due on due Goal Pneumococcal vaccine due Goal Hep C AB-8472. Due on due Goal Self Management Goals. Due on due Goal Influenza vaccin e. Due on due Goal Depression scree quyen. Due on due Goal Dental exam. Due on due Goal Nutritional Scre ening Assessment. Due on due Goal Health Literacy. Due on due Goal Tdap. Due on due Goal Mammogram. Due on due Goal Pneumococcal vaccine due Goal Dental exam. Due on due Goal Influenza vaccin e. Due on due Goal Health Literacy. Due on due Goal Tdap. Due on due Goal Nutritional Scre ening Assessment. Due on due Goal Hep C AB-8472. Due on due Goal Self Management Goals. Due on due Goal Depression scree quyen. Due on due Goal Pneumococcal vaccine due Goal Dental exam. Due on due Goal Influenza vaccin e. Due on due Goal Health Literacy. Due on due Goal Tdap. Due on due Goal Nutritional Scre ening Assessment. Due on due Goal Hep C AB-8472. Due on due Goal Self Management Goals. Due on due Goal Depression scree quyen. Due on due Goal Dietary manageme nt education, guidance, and counseling completed Goal Dietary manageme nt education, guidance, and counseling completed Referral Ordered: Aspiration of breast cyst with ultrasound guidance without biopsy ordered Referral Ordered: Diagnostic Mammography; Bilateral, Include CAD ordered Referral Ordered: Ultrasound,breast,unilat,include Axilla;limited Left ordered Referral Referred To: [facility]/[address] [place] [address], [address] [phone] Ordered: Referrals: *[facility]. [facility]. Evaluate and treat ordered Referral Ordered: Screening mammography of both breasts ordered Referral Ordered: Ultrasound of breast and axilla Bilateral Appointment date/timeframe: 01/31/2022 ordered Referral Ordered: Diagnostic mammography of both breasts Appointment date/timeframe: 01/31/2022 ordered Referral Ordered: Transvaginal ultrasound Appointment date/timeframe: 01/20/2022 ordered Referral Ordered: Us pelvic nonobstetric real-time image complete Appointment date/timeframe: 01/20/2022 ordered Patient Education Mammogram: About This T est completed Patient Education Pap Test: Care Instruct ions completed Patient Education Breast Self-Ex am: Care Instructions completed Future Order: Radiology Order Ul trasound,breast,unilat,include Axilla;limited Left ([id number]), Added on: New Future Order: Radiology Order Di agnostic Mammography; Bilateral, Include CAD ([id number]), Added on: New Future Order: Radiology Order Tr ansvaginal ultrasound ([id number]), Added on: New Future Order: Radiology Order Us pelvic nonobstetric real-time image complete ([id number]), Added on: New Future Order: Radiology Order Di agnostic mammography of both breasts ([id number]), Added on: New Future Order: Radiology Order Ul trasound of breast and axilla Bilateral ([id number]), Added on: New Future Order: Radiology Order Sc reening mammography of both breasts ([id number]), Added on: New History Of Present Illness Encounter Date Complaint History Of Prese nt Illness CBE (comments) Comments: breast pain greater than 1 yeardoes not correlate with menses CBE Flu shot: Declin ed Patient states here for breast exam.Patient c/o left breast pain off/on CBE Patient presents to the clinic for CBE and screening mammogram via [facility]. Patient does not perform SBE. Pt with breast pain b/l that comes and goes non-cyclical x1 year. Patient denies any breast pain nor nipple retractions/discharge. Patient denies any self or family history of breast cancer. Never had mammogram done before. PAP test : 7. Patsy ty: Term: 6. : 1. Livin. The patient states she uses tubal ligation for control. Last LMP was 12/27/2021. Her menses is irregular with normal flow. Negative for: breast discharge, breast lump(s) and breast self exam. Positive for: breast pain (side: bilateral). Pertinent negatives include abnormal bleeding (hematology), abnormal vaginal bleeding, dyspareunia, vaginal discharge and vaginal itching. The patient no longer uses tobacco. She has been exposed to passive smoke. She does not drink alcohol. Additional information: Patient presents to the clinic for pap and CBE through [facility] program. TB screening for job HIV screening Declines. Instructions Date Instruction Additional Infor abiel as above Related to Encou nter for screening mammogram for breast cancer breast exam today no rmalDiagnostic mammogram and Left US orderedIBCCP Referral placed in error, please disregard--examen de mama hoy normalSe ordena mamograf a de diagn s mitch y salida de ultrasonido Related to Breast pain, left Giving encouragement to exercise Related to Body mass index [BMI] 28.0-28.9, adult Dietary management e ducation, guidance, and counseling Related to Body mass index [BMI] 28.0-28.9, adult will order pelvic/tr ansvaginal ultrasound for further evaluationTake tylenol as neededstay well hydratedF/u pending resultsRTC sooner or go to ER for any worsening symptoms Related to Left lower quadrant pain pap performed and sent Related t o Screening for cervical cancer Will order screening mammogram [facility] breast [facility]: please give educational handoutSchedule preventative exam at next f/u visitRTC sooner if needed Related to Breast pain Giving encouragement to exercise Related to Body mass index [BMI] 26.0-26.9, adult Dietary management e ducation, guidance, and counseling Related to Body mass index [BMI] 26.0-26.9, adult Giving encouragement to exercise Related to Body mass index [BMI] 26.0-26.9, adult Dietary management e ducation, guidance, and counseling Related to Body mass index [BMI] 26.0-26.9, adult Return to office in 48-72hours R elated to screening for TB As per patient privacy policy some of the clinical information may not be visible. Assessments Type Assessment Date No Information Goals Health Concern Goal Type Priority Status Date Weight - 72.575 kg Walk 20 mins 5x week Patient Goal Patient: Normal priority, Provider: Normal priority Patient Care Teams Name Effective Dates (start - stop) Status Members No Information
--- OUTSIDE RECORDS SUMMARY | 2024-10-13 07:28 | XMS_ITS | Data Portability ---
Author Organization [facility] [employer], Main Office Address [address] [place] [address] Care Team Providers Care Jewel Hole Rough Opener Name Role Phone JAMILA FERNANDEZ Primary Care Provider JAMILA FERNANDEZ Referring Provider Assessment Encounter Date Assessment Date Assessment LastModified by Organization Details LastModified Time 03/25/2023 03/25/2023 This note is dictated and transcribed by [email or web address]. Civil Structural Designer variances may occur. Despite proofreading, typographical errors may occur. [email or web address] Not available 03/25/2023 15:11:32 04/15/2023 04/15/2023 This note is dictated and transcribed by [email or web address]. Civil Structural Designer variances may occur. Despite proofreading, typographical errors may occur. [email or web address] Not available 04/15/2023 18:34:11 Plan of Treatment Reminders Order Date Submit Date Provider Last Modified By Organization Details Last Modified Time Details Appointments None record ed. Lab None record ed. Referral None record ed. Procedures None record ed. Surgeries None record ed. Imaging XR, foot, 3 or more view 023 05/28/20 23 [email or web address] [facility] [place], [address], [place], [address], 3 10:15:05 XR, foot, 3 or more view 023 04/15/20 23 [email or web address] [facility] [place], [address], [place], [address], 3 18:34:41 XR, foot, 3 or more view 023 03/25/20 23 [email or web address] [facility] [place], [address], [address], 3 15:15:07 XR, foot, 3 or more view 023 03/12/20 [email or web address] [facility] [place], [address], [place], [address], 3 12:35:07 Medication Orders None record ed. Patient TargetsNo targets recorded. Patient InstructionsNo instructions recorded. Reason for Referral None Reported. Results Created Date Observation Date Name Description Value Unit Range Abnormal Flag Note LastModifiedBy Organization Detail LastModifiedTime 02/23/2002/22/2023 GLUCO SE (POIN T OF CARE) glucose (point of care) 167 mg/dL 74-99 high Not Available [facility] (Lab) [address] [place], [address], 02/22/2023 07:18:45 02/23/20 23 02/22/2023 URINE HCG QUAL/ POINT OF CARE ur preg NEGATI VE TESTI NG PERFO RMED BY SURGI MARCY SERVI ELAINE PERSO NNEL. Not Available [facility] (Lab) [address] [place], [address], 02/22/2023 09:27:40 02/23/20 23 02/22/2023 URINE HCG QUAL/ POINT OF CARE lot no. [id number] Not Available [facility] (Lab) [address] [place], [address], 02/22/2023 09:27:40 02/23/20 23 02/22/2023 URINE HCG QUAL/ POINT OF CARE pos QC POSITI VE Not Available [facility] (Lab) [address] [place], [address], 02/22/2023 09:27:40 02/23/20 23 02/22/2023 URINE HCG QUAL/ POINT OF CARE neg QC NEGATI VE Not Available [facility] (Lab) [address] [place], [address], 02/22/2023 09:27:40 02/23/20 23 02/22/2023 URINE HCG QUAL/ POINT OF CARE internal QC VALID Not Available [facility] (Lab) [address] [place], [address], 02/22/2023 09:27:40 02/23/20 23 02/22/2023 GLUCO SE (POIN T OF CARE) glucose (point of care) 224 mg/dL 74-99 high Not Available [facility] (Lab) [address] [place], [address], 02/22/2023 10:42:02 02/23/2002/22/2023 XR, foot, 2 view [facility] [address] [facility] [place] [address] Patien t Name: DEVONTE SOSA Access ion #: [id number] Sex: F : 1980 1 3 Dictat ed By: Nirav Harris Attend ing Physic lore: [facility]BAR [facility]ic lore: BRENT AKBAR Exam Date: 2022 09:21 AM Exam Name: XR FOOT LT 2V Admitt ing Diagno sis(es ): CLINIC AL INDICA TION: post op TECHNI QUE: 2 radiog raphic views of the left foot were obtain ed. Compar melba: None FINDIN GS/ IMPRES AB: Surgic al screw transf ixes the distal first metata rsal. Small volume gas in the surrou nding soft tissue s. Please refer to surgic al report for detail ed findin gs. Electr onical ly Signed by: Nirav Harris at 2022 12:38: 19 PM Page 1 [email or web address] [facility] (Imaging) [address], [place], [address], 02/25/2023 08:59:23 03/12/20 23 XR, foot, 3 or more view No observ ation record ed. [email or web address] [facility] [place] [address], [place], [address], 03/12/2023 12:35:00 03/25/20 23 XR, foot, 3 or more view No observ ation record ed. [email or web address] [facility] [place] [address], [place], [address], 03/25/2023 15:15:06 04/15/20 23 XR, foot, 3 or more view No observ ation record ed. [email or web address] [facility] [place] [address], [place], [address], 04/15/2023 18:34:39 05/28/20 23 XR, foot, 3 or more view No observ ation record ed. [email or web address] [facility] [place] [address], [place], [address], 05/28/2023 10:15:03 Result Notes None recorded. Problems Name Problem SNOMED Code Status Onset Date Resolution Date Notes Provider Name and Address Organization Details Recorded Time Pain in both feet 7738541517464 9102 Active 2022 [facility] Available [facility] 3 01:48:34 Bunion 991560155 Active 2022 Not Available [employer] 3 01:48:34 Hallux valgus AND bunion 373765326 Active 2022 Brent Monroy, DPM [address], [place], [address] , [facility] 17:10:06 Postoperat francisco j visit 388035058 Active 2022 Brent Monroy DPM [address], [place], [address] , [facility] Info [facility] [email or web address] [facility] 17:53:43 Problem Notes None recorded. Procedures Surgical History Date Name Laterality Status Provider Name and Address Organization Details Recorded Time Suture Removal completed Brent Monroy DPM [address], [place], [address], [facility] Info [employer] [facility] 03/12/2023 12:31:04 Imaging Results Imaging Date Name Status LastModified by Joe elkins Details LastModified Time 02/22/2023 XR, foot, 2 view completed [email or web address] [facility] (Imaging) [address], [place], [address], 02/25/2023 08:59:23 03/12/2023 XR, foot, 3 or more view completed [email or web address] [facility] [place] [address], [place], [address], 03/12/2023 12:35:00 03/25/2023 XR, foot, 3 or more view completed [email or web address] [facility] [place] [address], [place], [address], 03/25/2023 15:15:06 04/15/2023 XR, foot, 3 or more view completed [email or web address] [facility] [place] [address], [place], [address], 04/15/2023 18:34:39 05/28/2023 XR, foot, 3 or more view completed [email or web address] [facility] [place] [address], [place], [address], 05/28/2023 10:15:03 Procedure Notes None recorded. Medical Equipment None Reported. Allergies No known drug allergies Medications Name Sig Start Date Stop Date Status Note LastModified by Organization Details LastModified Time atorvastatin 40 mg tablet TAKE 1 TABLET BY MOUTH ONCE DAILY IN THE EVENING active Not Available Not Available No t Available metformin 500 mg tablet TAKE 1 TABLET BY MOUTH TWICE DAILY active Not Available Not Available No t Available ammonium lactate 12 % lotion APPLY LOTION TOPICALLY ONCE DAILY active Not Available Not Available N ot Available fluconazole 150 mg tablet TAKE 1 TABLET BY MOUTH ONCE DAILY active Not Available Not Available No t Available hydrocodone 5 mg-acetaminop hen 325 mg tablet TAKE 1 TABLET BY MOUTH EVERY 6 HOURS NEEDED FOR PAIN active Not Available Not Available No t Available aspirin 81 mg tablet,delaye d release TAKE 1 TABLET BY MOUTH ONCE DAILY IN THE EVENING active Not Available Not Available No t Available ibuprofen 600 mg tablet TAKE 1 TABLET BY MOUTH EVERY 6 HOURS active Not Available Not Available No t Available fluticasone propionate 50 mcg/actuation nasal spray,suspens ion USE 1 SPRAY(S) IN EACH NOSTRIL TWICE DAILY FOR 30 DAYS active Not Available Not Available No t Available cyclobenzapri ne 5 mg tablet TAKE 1 TABLET BY MOUTH TWICE DAILY active Not Available Not Available No t Available fenofibrate 160 mg tablet TAKE 1 TABLET BY MOUTH ONCE DAILY active Not Available Not Available No t Available OneTouch Delica Plus Lancet 33 gauge USE DIRECTED TO CHECK BLOOD SUGARS FASTING AND 2 HOURS POST PRANDIAL active Not Available Not Available No t Available Vitals Date Recorded Body height Body mass index (BMI) Body weight Heart rate Respiratory rate Oxygen saturation Oxygen saturation in Arterial blood by Pulse oximetry Systolic blood pressure Diastolic blood pressure Provider Name and Address Organization Details Last Updated DateTime 3 170.18 cm 24.4 kg/m2 68830.4 1 g 78 /min 14 /min 98 % 98 % 90 mm[Hg] 49 mm[Hg] Bianca SWAN [place] [email or web address] [facility] 3 17:26:58 Date Recorded Body height Body mass index (BMI) Body weight Heart rate Respiratory rate Oxygen saturation Oxygen saturation in Arterial blood by Pulse oximetry Systolic blood pressure Diastolic blood pressure Provider Name and Address Organization Details Last Updated DateTime 3 170.18 cm 24.4 kg/m2 35011.4 1 g 69 /min 14 /min 99 % 99 % 118 mm[Hg] 81 mm[Hg] Bianca Downey [employer] [facility] 3 17:39:06 Date Recorded Body height Body mass index (BMI) Body weight Heart rate Respiratory rate Oxygen saturation Oxygen saturation in Arterial blood by Pulse oximetry Systolic blood pressure Diastolic blood pressure Provider Name and Address Organization Details Last Updated DateTime 3 170.18 cm 24.4 kg/m2 35166.4 1 g 80 /min 14 /min 98 % 98 % 117 mm[Hg] 83 mm[Hg] Bianca Downey [email or web address] [facility] 3 14:37:37 Date Recorded Body height Body mass index (BMI) Body weight Provider Name and Address Organization Details Last Updated DateTime 04/15/2023 170.18 cm 24.4 kg/m2 30874.41 g Bianca Downey [employer] [facility] [email or web address] [facility] 04/15/2023 17:54:09 Date Recorded Body height Body mass index (BMI) Body weight Heart rate Respiratory rate Oxygen saturation Oxygen saturation in Arterial blood by Pulse oximetry Provider Name and Address Organization Details Last Updated DateTime 3 170.18 cm 24.4 kg/m2 05096.4 1 g 78 /min 14 /min 99 % 99 % Bianca Downey [email or web address] [facility] 3 17:57:01 Social History Question Answer Notes LastModified by Organizat ion Details LastModified Time Tobacco Smoking Status Never Smoker Not Available [facility] 08/16/2022 01:47:51 What Is Your Level Of Alcohol Consumption? Occasional [id number] Information not available 08/16/2022 If You Are , What Was Your Level Of Alcohol Consumption Prior To ? None [id number] Information not available 08/16/2022 What Is Your Level Of Caffeine Consumption? Occasional [id number] Information not available 08/16/2022 What Was The Date Of Your Most Recent Tobacco Screening? 08/14/2022 [id number] Information not available 08/16/2022 Have You Ever Been Counseled For Unhealthy Alcohol Use? No [id number] [id number] Information not available 08/16/2022 Do You Use Any Illicit Or Recreational Drugs? No [id number] 026 Information not available 08/16/2022 Has Tobacco Cessation Counseling Been Provided? No [id number] Information not available 08/16/2022 Do You Or Have You Ever Used Any Other Forms Of Tobacco Or Nicotine? No [id number] Information not available 08/16/2022 Sex: Unknown Functional Status None recorded. Mental Status None recorded. Family History Nothing Reported. Medical History Condition Response DIABETES, TYPE Y Gynecological HistoryNo gynecological history recorded. Obstetrics History GPAL:G 0 P 0 0 0 0 Past Encounters Encounter ID Performer Location Encounter Start Date Encounter Closed Date Diagnosis/Indication Diagnosis SNOMED-CT Code Diagnosis ICD10 Code Diagnosis Note [id number] [facility] Podiatry [place] [id number] [facility], [address] [address] 08/14/2022 00:00:00 08/14/2022 17:42:24 [id number] Brent Monroy DPM [facility] [place] [address] [facility], [address] [address] 10/02/2022 17:00:30 10/03/2022 12:10:06 Hallux valgus AND bunion 369598810 M20.12 IM angle 15.9 LAW angle 22 sesamoid position 4x-rays reviewed with the patientCon [facility] conserv[facility] ve shoe gearFollow -up after returns to the [facility] for surgical workup and clearance [id number] Brent Monroy DPM [facility] [place] [address] [place] [address], [address] [address] 01/22/2023 17:31:14 02/11/2023 12:04:43 Bunion 047599813 M21.619 reviewed treatment options in detail with the patienther daughter is present for translatin g and she denied any translatin g servicespa tient understand s all risks, benefits, complicati ons of the planned procedurep nilson left distal bunionecto my with tendon and capsule balancing of the left 1st metatarsop halangeal jointRisks include but not limited to the following difficulty healing, painful scar, continued joint pain, recurrence of bunion, failed hardware, bone infection, loss of toe, skin infection, nerve injury, nerve pain.x-ray s reviewed with the patient detail IM angle 16 degree, LAW angle 20 , sesamoid position 3 obtain surgical clearance, Once cleared [facility] surgery [id number] Brent Monroy DPM [facility] [place] [address] [place] [address] 02/25/2023 16:57:25 03/05/2023 15:25:48 Hallux valgus AND bunion 714363304 M20.12 continue postop shoedressi ngs changed and cleaned with [employer] Postoperative visit 1836 42746 Z09 status post 1 week bunion correction distal chevron osteotomy muscle- tendon balancings [facility] date 02/22/2023 minimal weight bearingcon tinue postop shoe with heel weight-jose ringcontin ue elevation when at rest and icingpassi ve range of motion exercises of the 1st metatarsop halangeal joint daily to reduce scar tissuefoll ow-up 1 week for dressing change [id number] Brent Monroy DPM [facility] Pod[facility] [place] [address] [place] [address] 03/04/2023 17:22:26 03/04/2023 17:53:35 Postoperative visit 910423790 Z09 status post 1.5 weeks bunion correction distal chevron osteotomy muscle- tendon balancings [facility] date 02/22/2023 minimal weight bearingcon tinue postop shoe with heel weight-jose ringcontin ue elevation when at rest and icingpassi ve range of motion exercises of the 1st metatarsop halangeal joint daily to reduce scar tissuefoll ow-up 1 week for suture removal and x-rays Hallux veronika renu AND bunion 407025034 M20.12 continue postop shoedressi ngs changed and cleaned with [employer] [id number] Brent Monroy DPM [facility] [place] [address] [place] [address] 03/11/2023 17:31:29 03/13/2023 12:43:20 Hallux valgus AND bunion 151470798 M20.12 as above Postoperative visit 1836 97219 Z09 status post 2.5 weeks bunion correction distal chevron osteotomy muscle- tendon balancings urgery date 02/22/2023 minimal weight bearing focused to the heelcontin ue postop shoecontin ue elevation when at rest and icingpassi ve range of motion exercises of the 1st metatarsop halangeal joint daily to reduce scar tissuefoll ow-up 2 weeks, repeat x-rays [id number] Brent Monroy DPM [facility] [place] [address] [place] [address] 03/25/2023 14:29:41 03/25/2023 15:21:27 Postoperative visit 536042615 Z09 status post 5 weeks bunion correction distal chevron oste[facility]23 minimal weight bearing focused to the heelcontin ue postop shoecontin ue elevation when at rest and icingWork release for 3 weekspassi ve range of motion exercises of the 1st metatarsop halangeal joint daily to reduce scar tissuefoll ow-up 3 weeks repeat x-rays [id number] Brent Monroy DPM [facility] [place] [address] [place] [address] 04/15/2023 17:49:55 04/16/2023 10:53:13 Postoperative visit 512990913 Z09 status post bunion correction distal chevron osteotomy muscle- tendon balancings [facility] date 02/22/2023 may return to normal shoe gearwork release for partial work 4 hours dailyfollo w-up 6 weeks for repeat x-rayconti nue scar manipulati on with gentle massage [id number] Brent Monroy DPM [facility] [place] [address] [place] [address] 05/27/2023 17:53:30 05/28/2023 12:01:54 Hallux valgus AND bunion 697779994 M20.12 x-rays reviewedwo rk release givenconti nue supportive shoe gear such as new balancefol low-up in 1 month for repeat x-rays Health Concerns Section Related Observation LastModified by Organization Detai ls LastModified Time None Recorded Concern Status LastModified by Organization Details LastModified Time None Recorded Advance Directives Directive None Recorded Payers Encounter Date Sequence Insurance Name Policy Number Policy Tubbs Covered Member ID Tubbs Member ID Guarantor Name 03/04/2023 1 [facility] ON OR AFTER 12/15/20 (MEDICAID REPLACEMENT - HMO) Devonte Sosa [id number] Devonte Sosa 03/11/2023 1 [facility] ON OR AFTER 12/15/20 (MEDICAID REPLACEMENT - HMO) Devonte Ian [id number] Devonte Sosa 03/25/2023 1 [facility] ON OR AFTER 20 (MEDICAID REPLACEMENT - HMO) Devonte Ian [id number] Devonte Sosa 04/15/2023 1 [facility] ON OR AFTER 20 (MEDICAID REPLACEMENT - HMO) Devonte Ian [id number] Devonte Sosa 05/27/2023 1 [facility] ON OR AFTER 12/15/20 (MEDICAID REPLACEMENT - HMO) Devonte Sosa [id number] Devonte Sosa Notes Date Note Type Note Provider Name and Address Organization Details Recorded Time 3 text/html . Patient is a 42-year-old female who returns the office for follow-up on bunion surgery. Patient is status post 14 days. Patient states she is doing well. Patient has minimal to no swelling. Patient has no acute signs of infection. Patient denies any significant pain. Patient states she still has some minor pain. Patient continues use of the postop shoe. Patient denies any other pedal complaints. Brent Monroy DPM [address], [place], [address], [employer] 03/04/2023 17:43:20 3 text/html . Patient is a 42-year-old female who returns the office status post 2 weeks for bunion correction left foot. Patient is here for suture removal. Patient has minimal to no swelling of the foot. Patient has no acute signs of infection. Patient states she is doing well. Patient states she has some mild discomfort at the 1st metatarsophalangeal joint but overall has significantly improved. Patient denies any other complaints. Brent Monroy DPM [address], [place], [address], [employer] 03/12/2023 12:39:07 3 text/html . Patient is a 42-year-old female who returns the office for follow-up on bunion correction of the left foot. Patient is status post 1 month and is doing well. Patient has mild pain to range of motion at the 1st metatarsophalangeal joint but overall has improved. Patient has minor swelling to the joint area. Patient has no acute signs of infection. Patient states she has been weight-bearing in a postop shoe. Patient remains completely healed at the operative area. Patient denies any other complaints. Brent Monroy DPM [address], [place], [address], [employer] [facility] [employer] 03/25/2023 15:20:24 3 text/html . Patient is a 42-year-old female who returns the office for follow-up on bunionectomy of the left foot. Patient is doing well. Patient states she has minor discomfort at times at the dorsal base of the proximal phalanx at the area of incision. Patient states it is sensitive to light pressure. Explained to the patient to continue gentle massage to release adhesions to the area but overall patient has great correction and had repeat x-rays which shows a healed osteotomy with intact hardware. Patient denies any other pedal complaints. Brent Monroy DPM [address], [place], [address], [employer] [facility] [employer] 04/15/2023 18:34:58 3 text/html . Patient is a 42-year-old female who returns the office status post bunion surgery. Patient has returned to normal shoe gear and is doing well. Patient has minimal scarring to the incision area. Patient states that she still has some mild discomfort with maximal dorsiflexion of the 1st metatarsophalangeal joint but states overall she is ready to return to work. Patient denies any other complaints. Brent Monroy DPM [address], [place], [address], [employer] [facility] [employer] 05/28/2023 10:15:26 OBGyn Episode No OBEpisode recorded.
--- OUTSIDE RECORDS SUMMARY | 2024-10-13 07:30 | XMS_ITS | Encounter Summary ---
Author Organization [facility] Address [facility] [place] [address] Care Team Providers Care Menagerie Caretaker Name Role Phone Dai Heart CNP Primary Care Provider [phone] Encounter Details Date Type Department Care Team (Late st Contact Info) Description 01/21/2020 Hospital Follow-up Call [facility] [place] [address] [place] [address] Yasmine Walker RN Social History Tobacco Use Types Packs/Day Years Used Date Smoking Tobacco: Never Smokeless Tobacco: Never Alcohol Use Standard Drinks/Week Comments Never 0 (1 standard drink = 0.6 oz pur e alcohol) Humiliation, Afraid, Rape, and Kick questionnair e Answer Date Recorded Fear of Current or Ex-Partner No Emotionally Abused No 01/13/2020 Physically Abused No 01/13/2020 Sexually Abused No 01/13/2020 AUDIT-C Answer Date Recorded Frequency of Alcohol Consumption Never 01/13/2020 Average Number of Drinks Not on file 020 Frequency of Binge Drinking Not on file 12/16 Comments No Sex and Gender Information Value Date Recorded Sex Assigned at Not on file Legal Sex Female 5:33 PM CDT Gender Identity Not on file Sexual Orientation Not on file COVID-19 Exposure Response Date Recorded In the last month, have you been in contact with someone who was confirmed or suspected to have Coronavirus / COVID-19? No / Unsure 01/13/2020 2:46 AM CDT documented as of this encounter Functional Status * RETIRED Are you deaf or do you have serious difficulty hearing Answer Date of Assessment Author Status No 01/13/2020 3:39 AM CDT Activ e * RETIRED Are you blind or do you have serious difficulty seeing, even when wearing glasses? Answer Date of Assessment Author Status No 01/13/2020 3:39 AM SRIT Activ e * Do you have serious difficulty walking or climbing stairs? Answer Date of Assessment Author Status No 01/13/2020 3:39 AM Dee Cordero RN A ctive * Do you have difficulty dressing or bathing? Answer Date of Assessment Author Status No 01/13/2020 3:39 AM Dee Cordero RN A ctive * Because of a physical, mental, or emotional condition, do you have difficulty doing errands alone such as visiting a doctor's office or shopping? Answer Date of Assessment Author Status No 01/13/2020 3:39 AM Dee Cordero RN A ctive documented as of this encounter Mental Status * Because of a physical, mental, or emotional condition, do you have serious difficulty concentrating, remembering, or making decisions? Answer Entry Date Author Status No 01/13/2020 3:39 AM Dee Cordero RN A ctive documented in this encounter Plan of Treatment Not on file documented as of this encounter Visit Diagnoses Not on filedocumented in this encounter Care Teams Menagerie Caretaker Relationship Specialty Start Date End Date Dai Heart CNP [facility] [address] [place] [id number] PCP - General NURSE PRACTITIONER 01/11/20 documented as of this encounter
--- OUTSIDE RECORDS SUMMARY | 2024-10-13 07:30 | XMS_ITS | Clinical Summary ---
Author Organization [facility] Address [facility] [place] [address] Care Team Providers Care Pan Greaser Name Role Phone Una Truealejandratalia Justice CUBA Primary Care Provider [phone] Allergies No known active allergies Medications metFORMIN 500 MG tablet Take 1 tablet (500 mg total) by mouth 2 (two) times daily with meals. 60 tablet 01/15/2020 Active Active Problems Problem Noted Date Diagnosed Date Type 2 diabetes mellitus in , unspecified trimester ([facility]) 01/15/2020 Encounter for elective induction of labor ([facility]/ [facility]) 01/13/2020 Immunizations Immunization Administration Dates Next Due Tdap (Boostrix) 01/14/2020 Social History Tobacco Use Types Packs/Day Years [...] on file Sexual Orientation Not on file Last Filed Vital Signs Vital Sign Reading Time Taken Comments Blood Pressure 123/76 01/15/2020 7:15 AM CDT Pulse 53 01/15/2020 7:15 AM CDT Temperature 36.5 C (97.7 F) 01/15/2020 7:15 AM CDT Respiratory Rate 16 01/15/2020 7:15 AM CDT Oxygen Saturation 100% 01/15/2020 7:15 AM CDT Inhaled Oxygen Concentration - - Weight 83.5 kg (184 lb) 01/13/2020 2:46 AM CDT Height 170.2 cm (5' 7 ) 01/13/2020 2:46 AM CDT Body Mass Index 28.82 01/13/2020 2:46 AM CDT Plan of Treatment Health Maintenance Due Date Last Done Comments Cervical Cancer Screening Pa p Smear (Age 30 to 64) Every 3 Years 1979 Annual Physical 11/09/1982 Hepatitis C 11/09/1997 Hepatitis B Vaccines (1 of 3 - 19+ 3-dose series) 11/09/1998 Pneumococcal Vaccine: Pediat rics (0 to 5 Years) and At-Risk Patients (6 to 49 Years) (1 of 2 - PCV) 11/09/1998 Cervical Cancer Screening Pa p with HPV Testing (Age 30 to 64) Every 5 Years 11/09/2009 Cervical Cancer Screening with HPV 11/09/2009 Mammogram Screening 2019 COVID-19 Vaccine (1 - 2023-2 5 season) 2024 DTaP, Tdap and Td Vaccines ( 2 - Td or Tdap) 01/13/2030 01/14/2020 HPV Vaccines Aged Out No longer eligi ble based on patient's age to complete this topic Meningococcal B Vaccine Aged Out No l onger eligible based on patient's age to complete this topic Meningococcal Vaccine Aged Out No barrera dina eligible based on patient's age to complete this topic RSV Immunizations Under 20 Months Aged Out No longer eligible based on patient's age to complete this topic Insurance [place] Advance Directives * Full Code (Latest Code Status on File) Date Activated Date Inactivated Comments 01/13/2020 2:13 AM 01/13/2020 8:39 PM Care Teams Pan Greaser Relationship Specialty Start Date End Date Dai Heart CNP [address] [place] [address] PCP - General NURSE PRACTITIONER 01/11/20
== END 2024-10-13 07:24 | disposition home or self-care (01) ==
PROVIDERS: PCP Registered Nurse; Visit Provider Registered Nurse
DX: Z12.31 Encounter for screening mammogram for malignant neoplasm of breast (principal)
CPT/HCPCS: 77063; 77067